=== PATIENT | female | born 1960 | race Caucasian/White ===

== ENCOUNTER 2020-09-01 16:10 | Outpatient (REF) | payer MEDICAID, SELFPAY ==
--- NOTE | 2020-09-01 | MM_ITS ---
EXAMINATION: MM SCREENING DIGITAL BREAST TOMOSYNTHESIS, BILATERAL CLINICAL INFORMATION: Screening. Asymptomatic. The lifetime risk of breast cancer based on the Tyrer-Cuzick Model is 7.2%. COMPARISON: Mammography: May 21, 2019 and studies dating back to October 30, 2011 TECHNIQUE: Digital breast tomosynthesis is performed in both the craniocaudal and mediolateral oblique views along with computer-aided detection (CAD). Synthesized 2D images are generated from the tomosynthesis. FINDINGS: There are scattered areas of fibroglandular density (ACR BI-RADS breast composition Category b). There are no significant masses, abnormal calcifications, or other abnormalities. MM/MM tomosynthesis screening BI IMPRESSION: There are no significant changes from prior study. ASSESSMENT: BI-RADS 1: Negative RECOMMENDATION: Routine annual mammography screening. This patient's information was entered into a reminder system with a target due date for their next mammogram.
== END 2020-09-01 16:11 | disposition home or self-care (01) ==
LOC: HO.MAMMO 16:10
PROVIDERS: PCP Internal Medicine; Visit Provider Internal Medicine
DX: Z12.31 Encounter for screening mammogram for malignant neoplasm of breast (principal)
CPT/HCPCS: 77063; 77067

== ENCOUNTER 2021-10-17 10:05 | Outpatient (REF) | payer MEDICAID, SELFPAY ==
[2021-10-17 11:33] LABS: Hematocrit 38.3 % (37.0-47.0); Hemoglobin 12.9 g/dl (12.0-16.0); Mean Corpuscular HGB Conc 33.7 g/dl (31.0-35.0); Mean Corpuscular Hemoglobin 33.2 pg (27.0-33.0); Mean Corpuscular Volume 98.5 fL (80.0-98.0); Mean Platelet Volume 9.3 fL (9.4-12.3); Platelet Count 342 X10*3/uL (160-400); Red Blood Count 3.89 X10*6/uL (4.20-5.50); Red Cell Distribution Width 12.6 % (11.0-16.0); White Blood Count 4.9 X10*3/uL (4.8-10.8)
[2021-10-17 11:49] LABS: Alanine Aminotransferase 20 U/L (0-31); Albumin Level 4.4 g/dL (3.5-5.0); Alkaline Phosphatase 44 U/L (39-117); Anion Gap 11 (12-20); Aspartate Amino Transferase 23 U/L (5-31); Bilirubin Total 0.5 mg/dL (0.0-1.0); Blood Urea Nitrogen 14 mg/dL (9-16); Calcium 9.8 mg/dL (8.4-10.2); Carbon Dioxide 32 mmol/L (22-29); Chloride 101 mmol/L (96-108); Cholesterol 252 mg/dL; Estimated Glomerular Filt Rate > 60; Glucose Random 89 mg/dL (60-115); HDL Cholesterol 75 mg/dL; LDL Cholesterol Calculated 156 mg/dl; Potassium 4.7 mmol/L (3.3-5.1); Sodium 139 mmol/L (135-145); Total Protein 6.8 g/dL (6.5-8.0); Triglycerides 107 mg/dL
[2021-10-17 12:13] LABS: Thyroid Stimulating Hormone 0.66 uIU/mL (0.32-4.0); Vitamin D 25-OH Total 49.5 ng/mL (>30)
[2021-10-17 12:15] LABS: Folate 10.8 ng/mL (> or = 4.0); Vitamin B12 331 pg/mL (200-900)
[2021-10-18 08:04] LABS: ~HepC Num1 0.08 S/CO (0.00-0.79); ~Hepatitis C Antibody Nonreactive (Nonreactive)
== END 2021-10-17 10:06 | disposition home or self-care (01) ==
LOC: HO.HMGCLDS 10:05
PROVIDERS: PCP Internal Medicine; Visit Provider Registered Nurse
DX: Z00.00 Encounter for general adult medical examination without abnormal findings (principal); Z11.59 Encounter for screening for other viral diseases; Z11.4 Encounter for screening for human immunodeficiency virus [HIV]; Z13.220 Encounter for screening for lipoid disorders; Z13.29 Encounter for screening for other suspected endocrine disorder
CPT/HCPCS: 36415; 80053; 80061; 82306; 82607; 82746; 84443; 85027; 86803

== ENCOUNTER 2021-12-18 15:12 | Outpatient (REF) | payer MEDICAID, SELFPAY ==
--- NOTE | ~2021-12-18 | MM_ITS ---
EXAMINATION: MM SCREENING DIGITAL BREAST TOMOSYNTHESIS, BILATERAL CLINICAL INFORMATION: Screening. Asymptomatic. The lifetime risk of breast cancer based on the Tyrer-Cuzick Model is 7%. COMPARISON: Mammography: 09/01/2020, 05/21/2019, 05/13/2018 TECHNIQUE: Digital breast tomosynthesis is performed in both the craniocaudal and mediolateral oblique views along with computer-aided detection (CAD). Synthesized 2D images are generated from the tomosynthesis. FINDINGS: There are scattered areas of fibroglandular density (ACR BI-RADS breast composition Category b). There are no significant masses, abnormal calcifications, or other abnormalities. Parenchymal pattern is similar to prior studies. There is no developing density or architectural abnormality. The axilla and skin contours are unremarkable. No significant changes. MM/MM tomosynthesis screening BI IMPRESSION: No mammographic evidence of malignancy. ASSESSMENT: BI-RADS 1: Negative RECOMMENDATION: Routine annual mammography screening. This patient's information was entered into a reminder system with a target due date for their next mammogram.
== END 2021-12-18 15:13 | disposition home or self-care (01) ==
LOC: HO.MAMMO 15:12
PROVIDERS: PCP Internal Medicine; Visit Provider Internal Medicine
DX: Z12.31 Encounter for screening mammogram for malignant neoplasm of breast (principal)
CPT/HCPCS: 77063; 77067

== ENCOUNTER 2023-01-17 14:43 | Outpatient (REF) | payer MEDICAID, SELFPAY ==
--- NOTE | ~2023-01-17 | MM_ITS ---
EXAMINATION: BONE DENSITOMETRY CLINICAL INDICATION: Osteopenia. COMPARISON: Baseline BD dated 05/21/2019. TECHNIQUE: Using a [employer] DXA System (software version: 13.1) manufactured by [employer], dual-energy x-ray absorptiometry was performed of the lumbar spine and left hip. The images are of good technical quality. Summary results are attached. FINDINGS: AP SPINE L1-L4: Current: BMD 0.947 g/cm2, Z-score -0.2, T-score -1.9, osteopenia, 5.3% decrease from baseline (<5% change is not significant). Baseline: BMD 1.000 g/cm2. LEFT FEMUR, NECK: Current: BMD 0.762 g/cm2, Z-score -0.4, T-score -2.0, osteopenia. Baseline: BMD 0.775 g/cm2. LEFT FEMUR, TOTAL: Current: BMD 0.806 g/cm2, Z-score -0.3, T-score -1.6, osteopenia, 5.4% decrease from baseline (<5% change is not significant). Baseline: BMD 0.852 g/cm2. IDENTIFIED RISK FACTORS: Early menopause, secondary osteoporosis. HISTORY OF FRACTURE: None listed. MEDICATIONS: None listed. MM/XR DEXA axial skeleton IMPRESSION: 1. DIAGNOSIS: Osteopenia based on the lowest T-score value of -2.0 in the femoral neck applying World Health Organization criteria. 2. 10-YEAR FRACTURE RISK PREDICTION, FRAX: Major osteoporotic fracture (clinical spine, forearm, hip or shoulder) 9.1%. Hip fracture 1.3%. 3. Treatment Recommendations: NOF guidelines recommend consideration for treatment in postmenopausal women and men age 50 and older presenting with the following: -A hip or vertebral (clinical or morphometric) fracture. -T-score less than or equal to -2.5 at the femoral neck or spine after appropriate evaluation to exclude secondary causes. -Low bone mass at the hip or spine and a 10-year fracture probability by FRAX of greater than or equal to 3% for hip fracture or greater than or equal to 20% for major osteoporotic fracture based on the [place] adapted WHO algorithm. 4. Other Recommendations: All treatment decisions require clinical judgment and consideration of individual patient factors, including patient preferences, comorbidities, previous drug use, risk factors not captured in the FRAX model (e.g. frailty, falls, vitamin D deficiency, increased bone turnover, interval significant decline in bone density) and possible under or overestimation of fracture risk by FRAX. Additional medical evaluation for secondary cause of low bone mineral density may be appropriate. FUTURE SCAN RECOMMENDATION: People with diagnosed cases of osteoporosis or at high risk for fracture should have regular bone mineral density tests. For patients eligible for Medicare, routine testing is allowed once every 2 years. The testing frequency can be increased to one year for patients who have rapidly progressing disease, those who are receiving or discontinuing medical therapy to restore bone mass, or have additional risk factors.
--- NOTE | ~2023-01-17 | MM_ITS ---
EXAMINATION: MM SCREENING DIGITAL BREAST TOMOSYNTHESIS, BILATERAL CLINICAL INFORMATION: Screening. Asymptomatic. The lifetime risk of breast cancer based on the Tyrer-Cuzick Model is 6.0%. COMPARISON: Mammography: December 18, 2021 and studies dating back to April 09, 2017 TECHNIQUE: Digital breast tomosynthesis is performed in both the craniocaudal and mediolateral oblique views along with computer-aided detection (CAD). Synthesized 2D images are generated from the tomosynthesis. FINDINGS: There are scattered areas of fibroglandular density (ACR BI-RADS breast composition Category b). There are no significant masses, abnormal calcifications, or other abnormalities. MM/MM tomosynthesis screening BI IMPRESSION: No significant changes from prior exam. ASSESSMENT: BI-RADS 1: Negative RECOMMENDATION: Routine annual mammography screening. This patient's information was entered into a reminder system with a target due date for their next mammogram.
== END 2023-01-17 14:44 | disposition home or self-care (01) ==
LOC: HO.MAMMO 14:43
PROVIDERS: PCP Registered Nurse; Visit Provider Registered Nurse
DX: Z12.31 Encounter for screening mammogram for malignant neoplasm of breast (principal); Z13.820 Encounter for screening for osteoporosis; Z78.0 Asymptomatic menopausal state; M85.80 Other specified disorders of bone density and structure, unspecified site
CPT/HCPCS: 77063; 77067; 77080

== ENCOUNTER → 2023-01-31 09:12 | Outpatient (BNVA) | payer OTHER, SELFPAY | PROVIDERS: PCP Registered Nurse; Visit Provider Physician Assistant Medical | DX: T21.21XA Burn of second degree of chest wall, initial encounter (principal); X11.8XXA Contact with other hot tap-water, initial encounter | CPT/HCPCS: 16000; 99203 ==

== ENCOUNTER → 2023-02-01 11:35 | Outpatient (BNVA) | payer OTHER, SELFPAY | PROVIDERS: PCP Registered Nurse; Visit Provider Physician Assistant Medical | DX: T21.21XD Burn of second degree of chest wall, subsequent encounter (principal); X11.8XXD Contact with other hot tap-water, subsequent encounter | CPT/HCPCS: 99213 ==

== ENCOUNTER 2023-02-20 16:54 | Inpatient (IN) | payer OTHER, SELFPAY ==
--- NOTE | ~2023-02-20 | XR_ITS ---
EXAMINATION: XR HAND, LEFT CLINICAL INFORMATION: Left hand pain, status post jammed in car door. COMPARISON: None available. TECHNIQUE: PA, lateral, and oblique views of the left hand. FINDINGS: There is moderate soft tissue swelling mid phalanx fourth digit. No visible fracture or dislocation seen. There is mild osteopenia. No visible arthritic changes. XR/XR hand LT min 3V IMPRESSION: Moderate soft tissue swelling mid phalanx fourth digit. No visible acute fracture or dislocation seen. There is mild osteopenia. Soft tissue swelling mid phalanx fourth digit without underlying fracture or dislocation. There is mild osteopenia.
[2023-02-20 17:13] VITALS: BP 140/70; PULSE 92; RESP 18; TEMP 36.6; O2SAT 98; BMI 22.3
--- NOTE | 2023-02-20 17:17 | ED_ITS ---
HPI - Extremity Problem General Chief complaint: Extremity Problem <DANNIE Pham - Last Filed: 02/20/23 18:13> Stated complaint: referral from urgent care, cellulitis L hand <DANNIE Pham - Last Filed: 02/20/23 18:13> Time Seen by Provider: 02/20/23 20:02 <DANNIE Pham - Last Filed: 02/20/23 18:13> Source: patient <Med De Oliveira MD - Last Filed: 02/20/23 21:08> Mode of arrival: ambulatory <Med De Oliveira MD - Last Filed: 02/20/23 21:08> Limitations: no limitations <Med De Oliveira MD - Last Filed: 02/20/23 21:08> History of Present Illness HPI Narrative: 62-year-old female who presents emergency department for evaluation of injury to her left hand with increased pain and swelling. Patient states that on Saturday night, 02/17/2023 she changed her left middle finger in a door. She sustained a cut on her left 4th finger. Initially this blood but she was able to control the bleeding. She states that over the last several days she has not felt well. She has had fatigue and weakness. She states that she also de veloped a blister on her nose she is not certain if this preceded the cut her came on after the cut. She states that her nose is now red and swollen and the redness has spread to her face. She states that this morning the left 4th finger became very swollen and painful, the redness spread down her hand. She went to an urgent care clinic and advised to go to the emergency department for evaluation of cellulitis. She states since being in the ER the redness has spread proximally. <Med De Oliveira MD - Last Filed: 02/20/23 21:08> Related Data Allergies/Adverse reactions: Allergies Allergy/AdvReac Type Severity Reaction Status Date / Time No Known Allergies Allergy Unverified 07/07/20 16:32 <DANNIE Pham Last Filed: 02/20/23 18:13> Review of Systems Review of Systems: Yes all other systems are reviewed and are negative <Med De Oliveira MD - Last Filed: 02/20/23 21:08> [facility] Past Medical History [facility] Narrative: Past medical history resting tremor. Social history: She denies tobacco and alcohol use. She does drink 2 glasses of wine and 1 glass of beer 5 times a week. She denies drug use. <Med De Oliveira MD - Last Filed: 02/20/23 21:08> Social History Social History: Social History Smoked in Last 30 Days: No Use of substances other than those prescribed or required for medical reasons: No Advance Directives: No Advance Directives Information Provided: No Patient : No <DANNIE Pham - Last Filed: 02/20/23 18:13> Physical Exam Vital Signs: Vital Signs: Last Vital Signs Temp 98 F 02/20/23 17:13 Pulse 92 02/20/23 17:13 Resp 18 02/20/23 17:13 BP 140/70 H 02/20/23 17:13 Pulse Ox 98 02/20/23 17:13 O2 Del Method Room Air 02/20/23 17:13 BMI result Body Mass Index 22.3 <DANNIE Pham - Last Filed: 02/20/23 18:13> Vital Signs: Last Vital Signs Temp 98 F 02/20/23 17:13 Pulse 92 02/20/23 17:13 Resp 18 02/20/23 17:13 BP 140/70 H 02/20/23 17:13 Pulse Ox 98 02/20/23 17:13 O2 Del Method Room Air 02/20/23 17:13 BMI result Body Mass Index 22.3 <Med De Oliveira MD - Last Filed: 02/20/23 21:08> Const: Other: Awake, alert, female patient, appears to be in distress secondary to her left hand injury. <Med De Oliveira MD - Last Filed: 02/20/23 21:08> HEENT: Other: <Med De Oliveira MD - Last Filed: 02/20/23 21:08> Head: Yes normal to inspection, Yes normocephalic and Yes atraumatic <Med De Oliveira MD - Last Filed: 02/20/23 21:08> Ears: external ears normal <MD Tatyana Fonseca Last Filed: 02/20/23 21:08> General nose exam: Normal external nose present <MD Tatyana Fonseca Last Filed: 02/20/23 21:08> Face and sinus: Yes other (Patient has several blisters to her nose, her nose and cheeks are red /warm) <MD Tatyana Fonseca Last Filed: 02/20/23 21:08> Mouth: Normal oral and palatal mucosa present <MD Tatyana Fonseca Last Filed: 02/20/23 21:08> Throat: Yes posterior oropharynx normal <MD Tatyana Fonseca Last Filed: 02/20/23 21:08> Eyes: General: appearance normal, both eyes and all related structures <MD Tatyana Fonseca Last Filed: 02/20/23 21:08> Pupils: Equal, round and reactive pupils present <MD Tatyana Fonseca Last Filed: 02/20/23 21:08> Neck: Neck: Yes normal visual inspection, Yes no lymphadenopathy, Yes trachea midline and Yes supple <MD Tatyana Fonseca Last Filed: 02/20/23 21:08> Chest: Chest palpation & inspection: normal inspection of the chest and normal palpation of entire chest wall <MD Tatyana Fonseca Last Filed: 02/20/23 21:08> Resp: Effort & Inspection: normal respiratory effort and able to speak in complete sentences <MD Tatyana Fonseca Last Filed: 02/20/23 21:08> Auscultation: clear to auscultation bilaterally <MD Tatyana Fonseca Last Filed: 02/20/23 21:08> Cardio: Rate: regular rate <MD Tatyana Fonseca Last Filed: 02/20/23 21:08> Rhythm: regular rhythm <MD Tatyana Fonseca Last Filed: 02/20/23 21:08> Heart sounds: S1 normal heart sound present, S2 normal heart sound present and no murmurs <MD Tatyana Fonseca Last Filed: 02/20/23 21:08> GI: Inspection: Yes normal to inspection <Med De Oliveira MD - Last Filed: 02/20/23 21:08> Palpation (GI): Soft to palpation, nontender and no guarding <Med De Oliveira MD - Last Filed: 02/20/23 21:08> Auscultation: normal bowel sounds <Med De Oliveira MD - Last Filed: 02/20/23 21:08> Neuro: Cranial nerves: Yes CN's II-XII intact bilaterally and Yes Equal, round and reactive pupils present <Med De Oliveira MD - Last Filed: 02/20/23 21:08> Cognition (Neuro): normal cognition <Med De Oliveira MD - Last Filed: 02/20/23 21:08> Motor exam (neuro): 5/5 motor strength present throughout <Med De Oliveira MD - Last Filed: 02/20/23 21:08> Extrem: Other: Patient has he purulent appearing blister on her 4th finger which is ecchymotic, the patient has erythema over the 4th and 5th finger extending down the palm. She also has significant soft tissue swelling and erythema with increased warmth over the dorsal aspect of the hand. Patient has limited range of motion of the 4th finger secondary to pain <Med De Oliveira MD - Last Filed: 02/20/23 21:08> General: Yes normal to inspection <Med De Oliveira MD - Last Filed: 02/20/23 21:08> Psych: Appearance: grossly normal <Med De Oliveira MD - Last Filed: 02/20/23 21:08> Speech and movement: Normal speech and movement present <MD Tatyana Fonseca Last Filed: 02/20/23 21:08> Affect: normal affect <MD Tatyana Fonseca Last Filed: 02/20/23 21:08> Course Course Course Narrative: This is an RME: Additional HPI, ROS, PE not included below will be deferred to primary provider. 62-year-old female presents with crush injury to left hand crush injury happened on Saturday and has been worsening in terms of pain and swelling, patient reports she went to Urgent Care, Urgent Care told her she had synovitis and told her to come in because they were concerned she could be septic. I do not agree with this diagnosis. Patient's hand is likely swol adina and red likely secondary to a crush injury, she has not yet had imaging done, unsure if she has a fracture dislocation of that finger. Neurovascular status intact. Will bring her back to a minor care obtain x-rays and give something for pain control. On exam left 4th phalanx with erythema, edema, unable to perform range of motion secondary to pain and swelling. Radial pulses present. Neurovascular status intact <DANNIE Pham - Last Filed: 02/20/23 18:13> Medications Administered Discontinued Medications Generic Name Dose Route Start Last Admin Trade Name Freq PRN Reason Stop Dose Admin Oxycodone HCl 5 mg 02/20/23 17:16 02/20/23 19:23 Oxycodone Hcl Immed Release 5 Mg Tablet PO 02/20/23 17:17 5 mg ONCE ONE Administration <DANNIE Pham - Last Filed: 02/20/23 18:13> Medications Administered Discontinued Medications Generic Name Dose Route Start Last Admin Trade Name Freq PRN Reason Stop Dose Admin Oxycodone HCl 5 mg 02/20/23 17:16 02/20/23 19:23 Oxycodone Hcl Immed Release 5 Mg Tablet PO 02/20/23 17:17 5 mg ONCE ONE Administration <Med De Oliveira MD - Last Filed: 02/20/23 21:08> Medical Decision Making Medical Decision Making MDM Narrative: 62-year-old female who presents emergency department for evaluation of pain swelling and erythema of her left hand. She initially injured her left 5th finger when she closed it in the door 3 days prior. She also had erythema to her nose and cheeks bilaterally. Patient has had fatigue but no shaking chills or fever documented. Patient has a significant infection of her left hand with possible abscess to the left 4th finger. Patient also has erythema to her nose and face which may be hematologic spread of this infection. I ordered a laboratory evaluation includes CBC, CMP, CRP, ESR, lactic acid, PT/INR, PTT, blood cultures x2. I ordered an IV to be inserted, patient will be given normal saline x1 L, ceftriaxone 1 g IV and cefazolin 2 g IV. She received oxycodone 5 mg orally from triage provider. I ordered morphine 4 mg IV for her pain. I will consult our orthopedic provider to discuss admission for antibiotics and evaluation by our hand orthopedic surgeon. 2044: I did discuss over tiger text the patient's presentation with the covering orthopedic position Lyssa PANDEY. She requested that the patient be kept NPO after midnight, admitted to the hospitalist service with an orthopedic consult to Dr. Garcia. She believes that Dr. Garcia will take the patient to the operating room tomorrow. I discussed the patient's presentation with the covering hospitalist, Dr. Morales and the patient will be admitted to the hospital service. ESR pending. 2103: My interpretation laboratory data is as follows: Elevated WBC 05119 with left shift 81% neutrophils. Coags normal. Social low 132. CRP elevated 17.63. ESR pending. <Med De Oliveira MD - Last Filed: 02/20/23 21:08> Differential Diagnosis Differential diagnosis includes was not limited to cellulitis, abscess, tenosynovitis, felon <Med De Oliveira MD - Last Filed: 02/20/23 21:08> Admission/Observation Consideration of admission/observation: Escalation of care including admission/observation considered <Med De Oliveira MD - Last Filed: 02/20/23 21:08> Consult Healthcare Provider Management of the patient was discussed with: Hospitalist <Med De Oliveira MD - Last Filed: 02/20/23 21:08> Lab Data [facility] Lab Attestation statement: I reviewed the patient's lab results. <Med De Oliveira MD - Last Filed: 02/20/23 21:08> Radiology Impression Discussion of test interpretation with radiology: I have reviewed the radiologist's reading. <Med De Oliveira MD - Last Filed: 02/20/23 21:08> Radiologist Impression: XR hand LT min 3V IMPRESSION: Moderate soft tissue swelling mid phalanx fourth digit. No visible acute fracture or dislocation seen. There is mild osteopenia. Soft tissue swelling mid phalanx fourth digit without underlying fracture or dislocation. There is mild osteopenia. Dictated By:Wesley Rao MD <Med De Oliveira MD - Last Filed: 02/20/23 21:08> Independent Historian Clinical information obtained from an independent historian. History obtained from or confirmed by: Other (Sister) <Med De Oliveira MD - Last Filed: 02/20/23 21:08>
[2023-02-20] MEDS: oxyCODONE HCl Immed Release 5 MG TABLET PO (19:23)
--- NOTE | 2023-02-20 19:26 | PC.NURSE ---
Pt medicated per MAR, awaiting MD signup.
[2023-02-20 20:45] LABS: MANUAL DIFF FLAG NO
[2023-02-20 20:50] LABS: Basophils Absolute Auto 0.1 X10*3/uL (0.0-0.2); Basophils Percent Auto 0.5 % (0-2); Hematocrit 35.1 % (37.0-47.0); Hemoglobin 12.4 g/dl (12.0-16.0); Imm Gran Abs Auto 0.16 X10*3/uL (0.00-0.03); Imm Gran Pct Auto 0.8 % (0.0-0.4); Lymphocytes Percent Auto 5.1 % (20-40); Mean Corpuscular HGB Conc 35.3 g/dl (31.0-35.0); Mean Corpuscular Hemoglobin 34.3 pg (27.0-33.0); Mean Platelet Volume 8.9 fL (9.4-12.3); Monocytes Absolute Auto 1.2 X10*3/uL (0.1-1.2); Monocytes Percent Auto 5.8 % (2-11); Neutrophils Absolute Auto 17.7 x10*3/uL (2.0-8.3); Neutrophils Percent Auto 87.8 % (45-73); Platelet Count 269 X10*3/uL (160-400); Red Blood Count 3.62 X10*6/uL (4.20-5.50); Red Cell Distribution Width 12.5 % (11.0-16.0); White Blood Count 20.1 X10*3/uL (4.8-10.8)
[2023-02-20] MEDS: Morphine Sulfate 4 MG/ML CARTRIDGE IVPUSH (20:52)
[2023-02-20] MEDS: 0.9 % Sodium Chloride 1,000 ML 999 ML IV (20:53)
[2023-02-20 20:58] LABS: Partial Thromboplastin Time 29.2 SEC (26.0-36.4)
[2023-02-20 20:59] LABS: Lactic Acid 0.8 mmol/L (0.5-2.0)
[2023-02-20 21:03] LABS: Alanine Aminotransferase 20 U/L (0-31); Albumin Level 4.1 g/dL (3.5-5.0); Alkaline Phosphatase 70 U/L (39-117); Anion Gap 15 (12-20); Aspartate Amino Transferase 23 U/L (5-31); Blood Urea Nitrogen 7 mg/dL (9-16); C Reactive Protein 17.63 mg/dL (< or = 0.50); Carbon Dioxide 23 mmol/L (22-29); Chloride 98 mmol/L (96-108); Creatinine Clr Calc Pharmacy 67.5; Estimated Glomerular Filt Rate > 60; Glucose Random 102 mg/dL (60-115); Potassium 4.3 mmol/L (3.3-5.1); Sodium 132 mmol/L (135-145); Total Protein 6.8 g/dL (6.5-8.0)
--- NOTE | 2023-02-20 21:05 | ECG_ITS ---
Test Reason : MEDICAL CLEARANCE Blood Pressure : / mmHG Vent. Rate : 078 BPM Atrial Rate : 078 BPM P-R Int : 150 ms QRS Dur : 094 ms QT Int : 360 ms P-R-T Axes : 056 039 005 degrees QTc Int : 410 ms Normal sinus rhythm T wave abnormality, consider inferior ischemia Abnormal ECG When compared with ECG of 19-SEP-2018 19:06, Minimal criteria for Inferior infarct are no longer Present T wave inversion no longer evident in Anterior leads QT has shortened Referred By: Med De Oliveira Electronically Signed By:CARLIN GIBSON MD
[2023-02-20] MEDS: ceFAZolin Sodium/Dextrose,Iso 2 GM/50 ML PIGGYBACK IV (21:08)
--- NOTE | 2023-02-20 21:16 | P.HPHOSP_ITS ---
pt seen and examined., has significant pain. evidence of abscess and cellulitis . started on ABX. to be seen by Ortho hand specialist in AM. for full H&P see below History of Present Illness Date of Service: 02/20/23 Attending physician on admission: Hossein Morales Chief Complaint: Finger abscess Pt is a 62-year-old female with PMH significant for anxiety, benign tremors, and anxiety?who presents to the ED with?after closing her left 4th finger in a door 3 days prior and 02/17/2023. Patient says that she closed her fingers in a closet door and felt a little pinch that bled just a little bit. Pt did not have any reduced ROM or reduction in her activities that night or throughout the next day. However yesterday patient says her fingers started to throb and she experienced some fever and chills. This morning when she awoke her her finger and hand had blown up and she noticed a spreading redness over both sides of her hand. Patient went to urgent care who then suggested she come to the hospital for further evaluation. Patient denies nausea, vomiting, abdominal pain. No chest pain/pressure, palpitations. No shortness of breath. ED provider contacted Orthopedics who wished patient to be NPO after midnight and will evaluate her in the morning. Patient also complains of a red rash and blisters that have formed over her nose and cheeks since Saturday 1 day prior to her finger incident. Patient states she has a long history of sun bathing but denies having a similar episode 4. States the rash on her face is looking better today than it was yesterday. In the ED patient was afebrile and hemodynamically stable. Labs were significant for leukocytosis of 20.1, mildly elevated ESR of 39, sodium of 132, C-reactive protein 17.63. Left hand x-ray showed moderate soft tissue swelling mid phalanx 4th digit without underlying fracture or dislocation. Pt was treated with cefazolin, vanco, morphine, IV fluid. Pt will be admitted to the hospital for treatment and further evaluation of left hand cellulitis and abscess with likely surgical intervention tomorrow by Orthopedics. Review of Systems Review of Systems: Left hand swelling, pain, redness Fever, chills Red rash over nose and cheeks Denies nausea, vomiting, diarrhea, abdominal pain No chest pain/pressure, palpitations No shortness of breath Yes all other systems are reviewed and are negative [facility] Social History Smoked in Last 30 Days: No Use of substances other than those prescribed or required for medical reasons: No Advance Directives: No Advance Directives Information Provided: No Patient : No Meds Allergies Allergy/AdvReac Type Severity Reaction Status Date / Time No Known Allergies Allergy Unverified 07/07/20 16:32 Active Medications: Current Medications Sodium Chloride (Ns) 1,000 mls @ 999 mls/hr IV .Q1H1M STA Stop: 02/20/23 21:18 Last Admin: 02/20/23 20:53 Dose: 999 mls/hr Vancomycin HCl 1,250 mg/ (Sodium Chloride) 250 mls @ 166.667 mls/hr IV ONCE ONE Stop: 02/20/23 22:08 Home Medications Medication Instructions Recorded Confirmed Last Taken Type bupropion HCl 300 mg 24 hr tablet, 300 mg PO DAILY 02/20/23 02/20/23 02/20/23 History extended release escitalopram oxalate 20 mg tablet 20 mg PO BEDTIME 02/20/23 02/20/23 02/19/23 History ibuprofen 800 mg tablet 800 mg PO BID PRN Pain 02/20/23 02/20/23 02/20/23 History lorazepam 0.5 mg tablet 0.5 mg PO DAILY PRN anxiety 02/20/23 02/20/23 02/17/23 History omeprazole 20 mg capsule,delayed 20 mg PO DAILY 02/20/23 02/20/23 02/17/23 History release primidone 50 mg tablet 100 mg PO DAILY 02/20/23 02/20/23 02/20/23 History trazodone 100 mg tablet 100 mg PO BEDTIME PRN insomnia 02/20/23 02/20/23 02/19/23 History Physical Exam Vital Signs and Narrative: Vital Signs: Last Vital Signs Temp 98 F 02/20/23 17:13 Pulse 92 02/20/23 17:13 Resp 18 02/20/23 17:13 BP 140/70 H 02/20/23 17:13 Pulse Ox 98 02/20/23 17:13 O2 Del Method Room Air 02/20/23 17:13 BMI result Body Mass Index 22.3 Constitutional: Alert, in no acute distress. Mental Status: Oriented to person, place and time. Eyes: Pupils are equal, round, and reactive to light. Ear, Nose, and Throat: Oropharynx clear, mucous membranes moist. Ears and nose without deformities. Trachea midline. Mild erythema covering nose and extending to cheekbones. Respiratory: Clear to auscultation bilaterally. No wheezing, rales, or rhonchi. Cardiovascular: S1, S2 regular. No murmurs, rubs, or gallops. Gastrointestinal: Abdomen soft, non-tender, non-distended. Normal bowel sounds. Neurologic: Cranial nerves II-XII are grossly intact bilaterally. No focal neurological deficits. Moves all extremities spontaneously. Extremities: Purulent draining sore at the distal palmar aspect of 4th digit with large area of ecchymosis surrounding 4th digit PIP. Significant swelling of 4th digit extending into the distal 3rd of the palm. Area of erythema and more with on distal palmar and dorsal aspect of the hand. See pictures below. Psychiatric: Normal mood and affect. Results Labs 02/20/23 20:33 02/20/23 20:33 Labs: Laboratory Results - last 24 hr 02/20/23 02/20/23 02/20/23 20:33 20:33 20:33 MCV 97.0 MCH 34.3 H MCHC 35.3 H RDW 12.5 Plt Count 269 MPV 8.9 L Immature Gran % (Auto) 0.8 H Neut % (Auto) 87.8 H Lymph % (Auto) 5.1 L Lee % (Auto) 5.8 Eos % (Auto) 0.0 Baso % (Auto) 0.5 Lymph # (Auto) 1.0 L Lee # (Auto) 1.2 Eos # (Auto) 0.0 Baso # (Auto) 0.1 Abs Immat Gran (auto) 0.16 H Absolute Neuts (auto) 17.7 H Absolute Nucleated RBC 0.000 Nucleated RBC % (auto) 0.0 PT 11.0 INR 1.0 APTT 29.2 Anion Gap 15 Estim Creat Clear Calc 67.5 Estimated GFR > 60 Random Glucose 102 Lactic Acid Calcium 9.0 D Total Bilirubin 1.0 AST 23 ALT 20 Alkaline Phosphatase 70 C-Reactive Protein 17.63 H Total Protein 6.8 Albumin 4.1 02/20/23 20:33 MCV MCH MCHC RDW Plt Count MPV Immature Gran % (Auto) Neut % (Auto) Lymph % (Auto) Lee % (Auto) Eos % (Auto) Baso % (Auto) Lymph # (Auto) Lee # (Auto) Eos # (Auto) Baso # (Auto) Abs Immat Gran (auto) Absolute Neuts (auto) Absolute Nucleated RBC Nucleated RBC % (auto) PT INR APTT Anion Gap Estim Creat Clear Calc Estimated GFR Random Glucose Lactic Acid 0.8 Calcium Total Bilirubin AST ALT Alkaline Phosphatase C-Reactive Protein Total Protein Albumin Imaging Radiologist's Impressions: Impressions Hand X-Ray 02/20/23 18:09 IMPRESSION: Moderate soft tissue swelling mid phalanx fourth digit. No visible acute fracture or dislocation seen. There is mild osteopenia. Soft tissue swelling mid phalanx fourth digit without underlying fracture or dislocation. There is mild osteopenia. Assessment and Plan (1) Abscess of finger, left: Status: Acute Plan Pt is a 62-year-old female with PMH significant for anxiety, benign tremors, and anxiety?who presents to the ED with?after closing her left 4th finger in a door 3 days prior and 02/17/2023. Pt will be admitted to the hospital for treatment and further evaluation of left hand cellulitis and abscess with likely surgical intervention tomorrow by Orthopedics. Abscess of 4th digit of left hand Patient with swelling, erythema, ecchymosis, purulent drainage of 4th digit and left hand Patient not septic: Leukocytosis, but normothermic and not tachycardic or tachypneic IV antibiotics: Vanco and cefazolin pt will be kept NPO after midnight in anticipation for possible surgical intervention by orthopedics in the morning Analgesics for pain management Pneumatic boots for DVT prophylaxis Facial rash Unclear etiology, differential includes Rosacea, lupus Started one day prior to finger injury Improved without treatment, observe for now If condition worsens consider treatment with steroids Should follow up outpatient with PCP or or scrub tech Benign tremors Continue primidone Mood disorder Continue home meds Insomnia Continue trazodone Full Code Attending:?Dr. Morales DVT Prophylaxis: Pneumatic boots Pt will require a hospitalization of at least two overnights for treatment and further evaluation of left hand cellulitis and abscess with likely surgical intervention tomorrow by Orthopedics. Time Spent With Patient Time: Total time managing care of this patient today ____ minutes. Quality Stroke Does the patient have a stroke diagnosis?: No VTE Prior VTE?: No VTE Risk Level:: Medical - moderate - high VTE Device Contraindication: N/A - Device Ordered VTE Drug Contraindication: Treatment Not Indicated
--- NOTE | 2023-02-20 21:27 | PHA.MEDREC ---
Pharmacy Consult ? Medication Reconciliation Pharmacy has completed the medication reconciliation.
[2023-02-20] MEDS: vancomycin HCL 1,250 MG in 0.9 % Sodium Chloride 250 ML 166.67 MG IV (21:46)
[2023-02-20 21:47] VITALS: BP 119/65; PULSE 82; RESP 18; O2SAT 96
[2023-02-20 21:47] LABS: Erythrocyte Sedimentation Rate 39 MM/HR (0-20)
[2023-02-20 22:19] LABS: COVID-19 Test Negative (Negative); IDNOW Serial# 08D9AD1C
[2023-02-20] MEDS: HYDROmorphone HCl 0.5 MG/0.5 ML SYRINGE IVPUSH (22:32)
--- NOTE | 2023-02-20 22:34 | PC.NURSE ---
phone report called to [facility]
--- NOTE | 2023-02-20 22:39 | PHA.PROG ---
Admission Date/Time: February 20, 2023 22:22 Indication: skin Weight in k.524 kg Adjusted body weight in Kg: Spade body weight in Kg: Obesity Dosing Indication % IBW: Serum Creatinine - Last 168 Hours 02/20/23 20:33 Creatinine 0.66 Estimated CrCl and GFR - Last 168 Hours 02/20/23 20:33 Estim Creat Clear Calc 67.5 Estimated GFR > 60 Vancomycin Loading Dose: 1250mg x 1 Current Vancomycin Dosing Regimen: 750mg Q12H Vancomycin Monitoring using AUC goal of 400 - 600 range with trough as surrogate marker: 475mg/L Date and Time for next Vancomycin Level to be drawn: 02/22/23 @0800 Pharmacist Comments on Vancomycin Plan: Predicted trough of 14.7mg/L. Will continue to monitor renal function Vancomycin dosing will take advantage of [employer] as a clinical decision support tool that uses Bayesian modeling to calculate individual patient's pharmacokinetic parameters and forecast the patient's drug concentration time course with the target goal AUC 24 range of 400 - 600 mg/L/hr.
[2023-02-20] MEDS: traZODone HCL 100 MG TABLET PO (22:52)
[2023-02-20] MEDS: LORazepam 0.5 MG TABLET PO (22:52)
--- NOTE | 2023-02-20 23:13 | MHC.EDTECH ---
Walked patient to the bathroom
[2023-02-21] VITALS (14 sets, daily range): BP systolic 101–115; BP diastolic 45–66; PULSE 85–112; RESP 16–20; TEMP 36.3–38.1; O2SAT 92–97
[2023-02-21] MEDS: Morphine Sulfate 4 MG/ML CARTRIDGE IVPUSH ×2 (00:47→08:35)
[2023-02-21] MEDS: 0.9 % Sodium Chloride Flush 3 ML SYRINGE IVFLUSH ×4 (00:51→21:27)
[2023-02-21] MEDS: HYDROmorphone HCl 0.5 MG/0.5 ML SYRINGE IVPUSH ×2 (04:38→21:26)
[2023-02-21] MEDS: ceFAZolin Sodium/Dextrose,Iso 2 GM/50 ML PIGGYBACK IV ×3 (04:43→21:27)
[2023-02-21] MEDS: Omeprazole 20 MG CAPSULE.DR PO (05:19)
[2023-02-21 08:08] LABS: Hematocrit 34.4 % (37.0-47.0); Hemoglobin 11.5 g/dl (12.0-16.0); Mean Corpuscular HGB Conc 33.4 g/dl (31.0-35.0); Mean Corpuscular Hemoglobin 33.7 pg (27.0-33.0); Mean Corpuscular Volume 100.9 fL (80.0-98.0); Mean Platelet Volume 9.1 fL (9.4-12.3); Platelet Count 277 X10*3/uL (160-400); Red Blood Count 3.41 X10*6/uL (4.20-5.50); Red Cell Distribution Width 12.9 % (11.0-16.0); White Blood Count 20.9 X10*3/uL (4.8-10.8)
[2023-02-21 08:21] LABS: Anion Gap 15 (12-20); Blood Urea Nitrogen 6 mg/dL (9-16); Calcium 8.6 mg/dL (8.4-10.2); Carbon Dioxide 26 mmol/L (22-29); Chloride 101 mmol/L (96-108); Creatinine Clr Calc Pharmacy 65.5; Estimated Glomerular Filt Rate > 60; Glucose Random 87 mg/dL (60-115); Potassium 4.5 mmol/L (3.3-5.1); Sodium 137 mmol/L (135-145)
--- NOTE | 2023-02-21 08:28 | HE.PHANOTE ---
Vancomycin Dosing Renal function stable. Continue current regimen. Next level 02/22 @ 0800. Andres RochaD
[2023-02-21] MEDS: buPROPion HCl XL 300 MG TAB.ER.24H PO (08:36)
[2023-02-21] MEDS: Primidone 50 MG TABLET 100 MG PO (08:36)
--- NOTE | 2023-02-21 08:55 | P.CONOP_ITS ---
History of Present Illness HPI Consult date: 02/21/23 Chief complaint: Abscess of 4th Digit of left hand Narrative: 62-year-old female with PMH significant for anxiety, benign tremors, and an xiety?who presents to the ED with?after closing her left 4th finger in a door on 02/17/2023.? Patient says that she closed her fingers in a closet door and felt a little pinch that bled just a little bit. Pt did not have any reduced ROM or reduction in her activities that night or throughout the next day.? 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 She states yesterday her fingers started to throb and she experienced some fever and chills.? This morning when she awoke her her finger and hand had blown up and she noticed a spreading redness over both sides of her hand.? She was admitted to the medical service and started on IV abx. This morning she states the finger is worsening. Review of Systems Review of Systems: per [facility] Social History Social History Household Members: None Housing: House Do you presently have visiting nurse or other home services: No Patient Tobacco Use Status: Never used Tobacco Smoked in Last 30 Days: No e-Cigarette/Vaping Use: Never Used Use of substances other than those prescribed or required for medical reasons: No Currently Displaying Signs/Symptoms of Drug Intoxication Withdrawal: No Any prior treatment program specific to substance use: No Have you been hit, kicked, punched, or otherwise hurt by someone within the past year? If so, by whom?: No Do you feel safe in your current relationship?: Yes Is there a partner from a previous relationship who is making you feel unsafe now?: No Are you made to feel afraid or neglected: No Advance Directives: No Advance Directives Information Provided: No Do you have thoughts of harming others: None Do you have a plan to hurt others: No Plan Recently lost weight without trying: No Eating poorly because of decreased appetite: No Nutrition Risks: No Nutritional Risk Patient : No : No Poor oral hygiene: No Meds Allergies Allergy/AdvReac Type Severity Reaction Status Date / Time No Known Allergies Allergy Unverified 07/07/20 16:32 Active Medications: Current Medications Acetaminophen (Acetaminophen 325 Mg Tablet) 650 mg PO Q6H PRN PRN Reason: Pain, Mild (Pain Scale 1-3) Bupropion HCl (Bupropion Hcl Xl 300 Mg Tab.Er.24h) 300 mg PO DAILY [facility] Last Admin: 02/21/23 08:36 Dose: 300 mg Escitalopram Oxalate (Escitalopram Oxalate 20 Mg Tablet) 20 mg PO BEDTIME [facility] Last Admin: 02/20/23 22:54 Dose: Not Given Cefazolin Sodium/Dextrose (Ancef) 2 gm in 50 mls @ 100 mls/hr IV Q8H [facility] Last Infusion: 02/21/23 06:31 Dose: Infused Vancomycin HCl 750 mg/ Sodium (Chloride) 265 mls @ 265 mls/hr IV Q12H [facility] Lorazepam (Lorazepam 0.5 Mg Tablet) 0.5 mg PO DAILY PRN PRN Reason: anxiety Last Admin: 02/20/23 22:52 Dose: 0.5 mg Morphine Sulfate (Morphine Sulfate 4 Mg/Ml Cartridge) 4 mg IVPUSH Q4H PRN; Protocol PRN Reason: Pain, Severe (Pain Scale 7-10) Last Admin: 02/21/23 08:35 Dose: 4 mg Omeprazole (Omeprazole 20 Mg Capsule.Dr) 20 mg PO DAILY@0630 [facility] Last Admin: 02/21/23 05:19 Dose: 20 mg Ondansetron HCl (Ondansetron Hcl 4 Mg/2 Ml Vial) 4 mg IVPUSH Q8H PRN PRN Reason: Nausea and Vomiting Pharmacy Consult (Consult Rx Perform Med Rec) 1 each MISCELLANE ONCE PRN PRN Reason: Consult order Pharmacy Consult (Consult Rx Vancomycin Dosing) 1 each MISCELLANE DAILY PRN PRN Reason: Consult order Primidone (Primidone 50 Mg Tablet) 100 mg PO DAILY [facility] Last Admin: 02/21/23 08:36 Dose: 100 mg Sodium Chloride (0.9 % Sodium Chloride Flush 3 Ml Syringe) 3 ml IVFLUSH QSHIFT [facility] Last Admin: 02/21/23 08:36 Dose: 3 ml Trazodone HCl (Trazodone Hcl 100 Mg Tablet) 100 mg PO BEDTIME PRN PRN Reason: insomnia Last Admin: 02/20/23 22:52 Dose: 100 mg Home Medications Medication Instructions Recorded Confirmed Last Taken Type bupropion HCl 300 mg 24 hr tablet, 300 mg PO DAILY 02/20/23 02/20/23 02/20/23 History extended release escitalopram oxalate 20 mg tablet 20 mg PO BEDTIME 02/20/23 02/20/23 02/19/23 History ibuprofen 800 mg tablet 800 mg PO BID PRN Pain 02/20/23 02/20/23 02/20/23 History lorazepam 0.5 mg tablet 0.5 mg PO DAILY PRN anxiety 02/20/23 02/20/23 02/17/23 History omeprazole 20 mg capsule,delayed 20 mg PO DAILY 02/20/23 02/20/23 02/17/23 History release primidone 50 mg tablet 100 mg PO DAILY 02/20/23 02/20/23 02/20/23 History trazodone 100 mg tablet 100 mg PO BEDTIME PRN insomnia 02/20/23 02/20/23 02/19/23 History Physical Exam Vital Signs: Vital Signs: Last Vital Signs Temp 99.7 F 02/21/23 07:24 Pulse 108 H 02/21/23 07:24 Resp 19 02/21/23 08:35 BP 105/64 02/21/23 07:24 Pulse Ox 93 02/21/23 07:24 O2 Del Method Room Air 02/21/23 07:24 BMI result Body Mass Index 22.3 Extrem: Other: ?Purulent draining sore at the distal palmar aspect of 4th digit with large area of ecchymosis surrounding 4th digit PIP.? Significant swelling of 4th digit extending into the distal 3rd of the palm.? Area of erythema and more with on distal palmar and dorsal aspect of the hand.?No tenderness or swelling throughout the thenar eminence, no pain along the flexor tendon of the 1,2,3,5. Results Labs 02/21/23 07:40 02/21/23 07:40 Labs: Abnormal lab results 02/20/23 02/20/23 02/20/23 Range/Units 20:33 20:33 20:48 WBC 20.1 H (4.8-10.8) X10*3/uL RBC 3.62 L (4.20-5.50) X10*6/uL Hgb (12.0-16.0) g/dl Hct 35.1 L (37.0-47.0) % MCV (80.0-98.0) fL MCH 34.3 H (27.0-33.0) pg MCHC 35.3 H (31.0-35.0) g/dl MPV 8.9 L (9.4-12.3) fL Immature Gran % (Auto) 0.8 H (0.0-0.4) % Neut % (Auto) 87.8 H (45-73) % Lymph % (Auto) 5.1 L (20-40) % Lymph # (Auto) 1.0 L (1.2-4.9) X10*3/uL Abs Immat Gran (auto) 0.16 H (0.00-0.03) X10*3/uL Absolute Neuts (auto) 17.7 H (2.0-8.3) x10*3/uL ESR 39 H (0-20) MM/HR Sodium 132 L (135-145) mmol/L BUN 7 L (9-16) mg/dL C-Reactive Protein 17.63 H (< or = 0.50) mg/dL 02/21/23 02/21/23 Range/Units 07:40 07:40 WBC 20.9 H (4.8-10.8) X10*3/uL RBC 3.41 L (4.20-5.50) X10*6/uL Hgb 11.5 L (12.0-16.0) g/dl Hct 34.4 L (37.0-47.0) % MCV 100.9 H (80.0-98.0) fL MCH 33.7 H (27.0-33.0) pg MCHC (31.0-35.0) g/dl MPV 9.1 L (9.4-12.3) fL Immature Gran % (Auto) (0.0-0.4) % Neut % (Auto) (45-73) % Lymph % (Auto) (20-40) % Lymph # (Auto) (1.2-4.9) X10*3/uL Abs Immat Gran (auto) (0.00-0.03) X10*3/uL Absolute Neuts (auto) (2.0-8.3) x10*3/uL ESR (0-20) MM/HR Sodium (135-145) mmol/L BUN 6 L (9-16) mg/dL C-Reactive Protein (< or = 0.50) mg/dL H & H 02/20/23 02/21/23 Range/Units 20:33 07:40 Hgb 12.4 11.5 L (12.0-16.0) g/dl Hct 35.1 L 34.4 L (37.0-47.0) % Coagulation 02/20/23 Range/Units 20:33 INR 1.0 (0.9-1.1) All other labs normal. Assessment and Plan (1) Abscess of finger, left: Status: Acute Plan We discussed options which include operative treatment.We discussed risk, benefits and alternatives. Risk including but not limited to ongoing infection, stiffness, nerve/tissue damage.She does understand all this and would like to proceed with With I&D of the left ring finger. Dr Garcia. She will be booked accordingly. Time Spent With Patient Time: Total time managing care of this patient today ____ minutes. Procedures Date of Service Date of Service: 02/21/23
--- NOTE | 2023-02-21 09:09 | W.PM.OPN ---
Operative Note Operative Note Date of Service: 02/21/23 Narrative: Operative Note Narrative: Preop diagnosis: 1. Left hand and ring finger infection Postop diagnosis: 1. Left ring finger flexor tenosynovitis 2. Left hand infection Procedure: 1. Left ring finger I and D and I and D of flexor tendon sheath 2. Left carpal tunnel release, and I&D of the carpal tunnel Surgeon: Barbara Garcia MD Anesthesia: General Anesthesia Findings: Large purulent blister extending over the dorsum of the ring finger. Creamy yellow purulence found in the flexor tendon sheath of the left ring finger extending from the A1 honorio distally to the felon that likely started all of this in the pad of the ring finger. Implants: None Tourniquet time: 32 minutes EBL: 5.0 ml Specimen: Cultures Drains: None Complications: None Disposition: Brought to the recovery room in stable condition Plan: Admit back to floor for IV antibiotics Check cultures and adjust antibiotics as indicated Wound check and dressing change tomorrow. Encourage gentle range of motion of other digits for now. Once infection significantly improved, early OT for range of motion I recommended Plan on possible return to the operating room on Saturday for repeat I and D if she does not have significant improvement over the next few days. Indications: The patient is a 62 year old woman with left ring finger and hand infection in patient who caught her finger in a car door about 4 days ago . The risks and benefits of operative treatment, including but not limited to risk of damage to blood vessels, nerves, tendons, infection, recurrence, persistent pain or numbness, incomplete resolution of preoperative symptoms, or need for further surgery were discussed with the patient and they wished to proceed with surgery. Procedure: Once consent was obtained patient was brought back to the operating suite and placed in the operating table in a supine position. . Perioperative antibiotics and anesthesia was administered by the anesthesia team. A tourniquet was applied to the proximal aspect of the left upper extremity and the limb was prepped and draped in a standard surgical fashion. The limb was elevated exsanguinated with Esmarch bandage and the tourniquet inflated to 250 mm of mercury for a total tourniquet time of 32 minutes. I began with an oblique incision over the pad of the left ring finger where she had a wound that likely started all of this, and the apex of an abscess. Creamy to yellow purulence was found and cultured. I then debrided the large bullae over the dorsal aspect of the ring finger, as it was full of purulent fluid. I made an interrupted Tom type incision over the volar aspect of the patient's left ring finger. The incisions were made with a 15. Blade through the skin to the subcutaneous tissues. I dissected down to the level of the flexor tendon sheath using tenotomy scissors with care being taken to protect the neurovascular structures. Purulence was found in and around the flexor tendon sheath over the middle phalanx, proximal phalanx and the A1 honorio area. The A1 honorio was opened longitudinally using a 15. Blade. Creamy yellow purulence was found within the flexor tendon sheath. Cultures were taken of the creamy yellow purulence within the flexor tendon sheath. These wounds were copiously irrigated with normal saline. I also used an Angiocath and a syringe to irrigate from proximal to distal through the flexor tendon sheath. Once satisfied with this I then made a carpal tunnel release by making a 2.5 cm longitudinal incision directly over the patient's carpal tunnel. No purulence was found in the subcutaneous tissues in this area. I then released the carpal tunnel by making a longitudinal incision in the transverse carpal ligament. There was some hyperemia and some watery fluid but no creamy purulence found within the carpal tunnel. I then copiously irrigated about the carpal tunnel with normal saline. At this point the tourniquet was deflated and hemostasis obtained with a brief period of local pressure. The wounds were again copiously irrigated with normal saline. Some of the skin edges were loosely reapproximated with 5-0 nylon suture. A digital block was performed using some 0.5% plain ropivacaine for postop pain control and a sterile dressing was applied. The patient appears to have tolerated the procedure well and with no complications. All digits were well vascularized conclusion of the case.
--- NOTE | 2023-02-21 09:42 | MHC.CM.PN ---
PATIENT IS FULLY INDEPENDENT NO DME OR [facility] SERVICES NO HCP ON FILE BUT SHE IS AWARE THAT CASE MANAGEMENT CAN ASSIST WITH COMPLETION IF SHE CHOOSES TO DO SO. PCP VERIFIED. PLAN WILL BE HOME - SELF CARE
--- NOTE | 2023-02-21 09:50 | P.CONAN_ITS ---
HPI - Anesthesia Eval Consult details Narrative: abscess finger PMFSH Active Problems Active Problems: All Active Problems (Updated 02/21/23 @ 09:47 by Shira Sharp RN) Abscess of finger, left (Acute) Cellulitis of face (Acute) Past Medical History Medical History (Updated 02/21/23 @ 09:47 by Shira Sharp RN) Hx of ectopic Family History Family history of problems with anesthesia: No Surgical History Surgical History (Updated 02/21/23 @ 09:47 by Shira Sharp RN) Hx of foot surgery History of Problems with Anesthesia: No Social History Social History Household Members: None Housing: House Do you presently have visiting nurse or other home services: No Patient Tobacco Use Status: Never used Tobacco Smoked in Last 30 Days: No e-Cigarette/Vaping Use: Never Used Use of substances other than those prescribed or required for medical reasons: No Currently Displaying Signs/Symptoms of Drug Intoxication Withdrawal: No Any prior treatment program specific to substance use: No Have you been hit, kicked, punched, or otherwise hurt by someone within the past year? If so, by whom?: No Do you feel safe in your current relationship?: Yes Is there a partner from a previous relationship who is making you feel unsafe now?: No Are you made to feel afraid or neglected: No Advance Directives: No Advance Directives Information Provided: No Do you have thoughts of harming others: None Do you have a plan to hurt others: No Plan Recently lost weight without trying: No Eating poorly because of decreased appetite: No Nutrition Risks: No Nutritional Risk Patient : No : No Poor oral hygiene: No service: No Current occupational status: employed Meds Allergies Allergy/AdvReac Type Severity Reaction Status Date / Time No Known Allergies Allergy Unverified 07/07/20 16:32 Active Medications: Current Medications Acetaminophen (Acetaminophen 325 Mg Tablet) 650 mg PO Q6H PRN PRN Reason: Pain, Mild (Pain Scale 1-3) Bupropion HCl (Bupropion Hcl Xl 300 Mg Tab.Er.24h) 300 mg PO DAILY [facility] Last Admin: 02/21/23 08:36 Dose: 300 mg Escitalopram Oxalate (Escitalopram Oxalate 20 Mg Tablet) 20 mg PO BEDTIME [facility] Last Admin: 05/03/23 22:54 Dose: Not Given Cefazolin Sodium/Dextrose (Ancef) 2 gm in 50 mls @ 100 mls/hr IV Q8H [facility] Last Infusion: 02/21/23 06:31 Dose: Infused Vancomycin HCl 750 mg/ Sodium (Chloride) 265 mls @ 265 mls/hr IV Q12H [facility] Lorazepam (Lorazepam 0.5 Mg Tablet) 0.5 mg PO DAILY PRN PRN Reason: anxiety Last Admin: 02/20/23 22:52 Dose: 0.5 mg Morphine Sulfate (Morphine Sulfate 4 Mg/Ml Cartridge) 4 mg IVPUSH Q4H PRN; Protocol PRN Reason: Pain, Severe (Pain Scale 7-10) Last Admin: 02/21/23 08:35 Dose: 4 mg Omeprazole (Omeprazole 20 Mg Capsule.Dr) 20 mg PO DAILY@0630 [facility] Last Admin: 02/21/23 05:19 Dose: 20 mg Ondansetron HCl (Ondansetron Hcl 4 Mg/2 Ml Vial) 4 mg IVPUSH Q8H PRN PRN Reason: Nausea and Vomiting Pharmacy Consult (Consult Rx Perform Med Rec) 1 each MISCELLANE ONCE PRN PRN Reason: Consult order Pharmacy Consult (Consult Rx Vancomycin Dosing) 1 each MISCELLANE DAILY PRN PRN Reason: Consult order Primidone (Primidone 50 Mg Tablet) 100 mg PO DAILY [facility] Last Admin: 02/21/23 08:36 Dose: 100 mg Sodium Chloride (0.9 % Sodium Chloride Flush 3 Ml Syringe) [facility] Last Admin: 02/21/23 08:36 Dose: 3 ml Trazodone HCl (Trazodone Hcl 100 Mg Tablet) 100 mg PO BEDTIME PRN PRN Reason: insomnia Last Admin: 02/20/23 22:52 Dose: 100 mg Home Medications Medication Instructions Recorded Confirmed Last Taken Type bupropion HCl 300 mg 24 hr tablet, 300 mg PO DAILY 02/20/23 02/20/23 02/20/23 History extended release escitalopram oxalate 20 mg tablet 20 mg PO BEDTIME 02/20/23 02/20/23 02/19/23 History ibuprofen 800 mg tablet 800 mg PO BID PRN Pain 02/20/23 02/20/23 02/20/23 History lorazepam 0.5 mg tablet 0.5 mg PO DAILY PRN anxiety 02/20/23 02/20/23 02/17/23 History omeprazole 20 mg capsule,delayed 20 mg PO DAILY 02/20/23 02/20/23 02/17/23 History release primidone 50 mg tablet 100 mg PO DAILY 02/20/23 02/20/23 02/20/23 History trazodone 100 mg tablet 100 mg PO BEDTIME PRN insomnia 02/20/23 02/20/23 02/19/23 History Exam Exam Date and Time: February 21, 2023 0950 Height,Weight and Vital Signs: Height 5 ft 1 in Weight 53.524 kg Last Vital Signs Temp 99.7 F 02/21/23 07:24 Pulse 108 H 02/21/23 07:24 Resp 19 02/21/23 08:35 BP 105/64 02/21/23 07:24 Pulse Ox 93 02/21/23 07:24 O2 Del Method Room Air 02/21/23 07:24 Pertinent Lab Results Pertinent Lab Results: Laboratory Tests 02/20/23 02/20/23 02/20/23 20:33 20:33 20:33 WBC 20.1 H RBC 3.62 L Hgb 12.4 Hct 35.1 L MCV 97.0 MCH 34.3 H MCHC 35.3 H RDW 12.5 Plt Count 269 MPV 8.9 L Immature Gran % (Auto) 0.8 H Neut % (Auto) 87.8 H Lymph % (Auto) 5.[address] [place] % (Auto) 5.8 Eos % (Auto) 0.0 Baso % (Auto) 0.5 Lymph # (Auto) 1.[address] [place] # (Auto) 1.2 Eos # (Auto) 0.0 Baso # (Auto) 0.1 Abs Immat Gran (auto) 0.16 H Absolute Neuts (auto) 17.7 H Absolute Nucleated RBC 0.000 Nucleated RBC % (auto) 0.0 ESR PT 11.0 INR 1.0 APTT 29.2 Sodium 132 L Potassium 4.3 Chloride 98 Carbon Dioxide 23 Anion Gap 15 BUN 7 L Creatinine 0.66 Estim Creat Clear Calc 67.5 Estimated GFR > 60 Random Glucose 102 Lactic Acid Calcium 9.0 D Total Bilirubin 1.0 AST 23 ALT 20 Alkaline Phosphatase 70 C-Reactive Protein 17.63 H Total Protein 6.8 Albumin 4.1 COVID-19 (SANJEEV) COVID-19 Clin Com 02/20/23 02/20/23 02/20/23 20:33 20:48 21:41 WBC RBC Hgb Hct MCV MCH MCHC RDW Plt Count MPV Immature Gran % (Auto) Neut % (Auto) Lymph % (Auto) [place] % (Auto) Eos % (Auto) Baso % (Auto) Lymph # (Auto) [place] # (Auto) Eos # (Auto) Baso # (Auto) Abs Immat Gran (auto) Absolute Neuts (auto) Absolute Nucleated RBC Nucleated RBC % (auto) ESR 39 H PT INR APTT Sodium Potassium Chloride Carbon Dioxide Anion Gap BUN Creatinine Estim Creat Clear Calc Estimated GFR Random Glucose Lactic Acid 0.8 Calcium Total Bilirubin AST ALT Alkaline Phosphatase C-Reactive Protein Total Protein Albumin COVID-19 (SANJEEV) Negative COVID-19 [employer] See Note 02/21/23 02/21/23 02/21/23 07:40 07:40 07:40 WBC 20.9 H RBC 3.41 L Hgb 11.5 L Hct 34.4 L MCV 100.9 H MCH 33.7 H MCHC 33.4 RDW 12.9 Plt Count 277 MPV 9.1 L Immature Gran % (Auto) Neut % (Auto) Lymph % (Auto) [place] % (Auto) Eos % (Auto) Baso % (Auto) Lymph # (Auto) [place] # (Auto) Eos # (Auto) Baso # (Auto) Abs Immat Gran (auto) Absolute Neuts (auto) Absolute Nucleated RBC 0.000 Nucleated RBC % (auto) 0.0 ESR PT INR APTT Sodium 137 Potassium 4.5 Chloride 101 Carbon Dioxide 26 Anion Gap 15 BUN 6 L Creatinine 0.68 0.68 Estim Creat Clear Calc 65.5 65.5 Estimated GFR > 60 > 60 Random Glucose 87 Lactic Acid Calcium 8.6 Total Bilirubin AST ALT Alkaline Phosphatase C-Reactive Protein Total Protein Albumin COVID-19 (SANJEEV) COVID-19 [employer] Com Airway Mallampati Class: II TM Dist: >3cm Neck ROM: Full Heart: rrr Lungs: cta Assessment and Plan Assessment Anesthesia Assessment: Anesthesia Plan Discussed and Chart Reviewed Final Anesthetic Review Family History of Problems with Anesthesia: No History of Problems with Anesthesia: No NPO: Yes ASA Class: II Final Preanesthetic Review: No Changes in Pt Med Stat, Meds/Allgs Chart Reviewed, Consent Obtained/Reviewed and Anes Risks/Benef Reviewed Patient Risk: Low Anesthetic Plan Anesthetic Plan: MAC: Disposition: Standard PACU
--- NOTE | 2023-02-21 10:37 | MHC.CM.PN ---
PATIENT LIKELY TO REMAIN FOR IV ABX. DC SATURDAY (SATURDAY LATEST)
--- NOTE | 2023-02-21 10:39 | MHC.SHP ---
Pre-Procedural Eval Section A Date of Service: 02/21/23 The patient is an INPATIENT: No Changes since office visit: No Cold of Flu in the past 2 weeks, No New Medical Problems, No Changes in Medication and No Patient answered all questions The History & Physical has been completed within 30 days and I have reviewed it.: Yes Section B Chief Complaint: Abscess of 4th Digit of left hand Allergies: Allergies Allergy/AdvReac Type Severity Reaction Status Date / Time No Known Allergies Allergy Unverified 07/07/20 16:32 Exam Exam Comment: The patient was seen and evaluated by me in preop hold this morning. The patient was alert oriented and in no acute distress, but complaining of significant pain in her left hand. Significant swelling of the left ring finger with visible purulence beneath the blisters present on the dorsal aspect of the finger. Her original wound was in the pulp of the finger . Tender along the flexor tendon sheath extending up to the A1 honorio and into the mid palm. No tenderness over the carpal tunnel Erythema and swelling extending dorsally above the wrist Plan I have reviewed the history and physical and performed a pertinent physical examination on my patient. No changes have occurred unless specified. Assessment and plan: 1. Left ring finger flexor tenosynovitis and hand infection I educated her about this condition Am recommending operative I and D The risks and benefits of operative treatment were discussed with the patient and the patient wishes to proceed with surgery. These risks include, but are not limited to risk of damage to blood vessels, nerves, tendons, infection, recurrence, incomplete relief of preoperative symptoms, persistent pain, possible need for further surgery and the risks associated with regional blocks and anesthesia. The plan is to take the patient to the operating room today for the following procedures: 1. Left ring finger and hand I&D 2. [ ] All of the preoperative paperwork including the consent was filled out today. All the patient's questions were answered. Time Spent With Patient Time: Total time managing care of this patient today ____ minutes.
[2023-02-21] MEDS: vancomycin HCL 750 MG in 0.9 % Sodium Chloride 250 ML 265 MG IV (14:24)
--- NOTE | 2023-02-21 16:27 | HO.PM.IMPN ---
Subjective Subjective Date of Service: 02/21/23 Interval History: seen and examined this morning follow up for left hand infection seen after I&D in OR pain improved due to nerve block denies fever, chills Review of Systems Review of Systems: Yes all other systems are reviewed and are negative Constitutional Constitutional: Denies chills and Denies fever(s) ENT Ears, Nose, Mouth, and Throat: Denies dizziness Cardiovascular Cardiovascular: Denies chest pain, Denies palpitations and Denies dyspnea Respiratory Respiratory: Denies cough and Denies dyspnea Gastrointestinal Gastrointestinal: Denies abdominal pain, Denies nausea and Denies vomiting Neurologic Neurologic: Denies dizziness Endocrine Endocrine: Denies palpitations Physical Exam Vital Signs: Vital Signs: Last Vital Signs Temp 97.4 F 02/21/23 15:28 Pulse 88 02/21/23 15:28 Resp 20 02/21/23 15:28 BP 106/63 02/21/23 15:28 Pulse Ox 96 02/21/23 15:28 O2 Del Method Room Air 02/21/23 15:28 BMI result Body Mass Index 22.3 Const: General: cooperative, comfortable, alert and awake Nutritional Appearance: average body habitus Orientation/consciousness: patient oriented x3 Resp: Effort & Inspection: normal respiratory effort, able to speak in complete sentences, no respiratory distress and no use of accessory muscles Cardio: Rate: regular rate Heart sounds: S1 normal heart sound present and S2 normal heart sound present GI: Inspection: No distended Palpation (GI): Soft to palpation and nontender Neuro: General: patient oriented x3 and CN's II-XI intact bilaterally Extrem: Other: left hand wrapped in C/D/I dressing Objective Data Active Medications Acetaminophen (Acetaminophen 325 Mg Tablet) 650 mg PO Q6H PRN PRN Reason: Pain, Mild (Pain Scale 1-3) Bupropion HCl (Bupropion Hcl Xl 300 Mg Tab.Er.24h) 300 mg PO DAILY [facility] Last Admin: 02/21/23 08:36 Dose: 300 mg Documented By: COTSTEPHANY Escitalopram Oxalate (Escitalopram Oxalate 20 Mg Tablet) 20 mg PO BEDTIME [facility] Last Admin: 02/20/23 22:54 Dose: Not Given Documented By: SURYA Non-Admin Reason: Med Not Available Hydromorphone HCl (Hydromorphone Hcl 0.5 Mg/0.5 Ml Syringe) 0.5 mg IVPUSH Q4H PRN; Protocol PRN Reason: Pain, Severe (Pain Scale 7-10) Cefazolin Sodium/Dextrose (Ancef) 2 gm in 50 mls @ 100 mls/hr IV Q8H [facility] Last Infusion: 02/21/23 14:20 Dose: 0 mls/hr Documented By: COTEMA Vancomycin HCl 750 mg/ Sodium (Chloride) 265 mls @ 265 mls/hr IV Q12H [facility] Last Infusion: 02/21/23 15:31 Dose: 0 mls/hr Documented By: COTEMA Lorazepam (Lorazepam 0.5 Mg Tablet) 0.5 mg PO DAILY PRN PRN Reason: anxiety Last Admin: 02/20/23 22:52 Dose: 0.5 mg Documented By: SURYA Omeprazole (Omeprazole 20 Mg Capsule.Dr) 20 mg PO DAILY@0630 [facility] Last Admin: 02/21/23 05:19 Dose: 20 mg Documented By: FABIANA Ondansetron HCl (Ondansetron Hcl 4 Mg/2 Ml Vial) 4 mg IVPUSH Q8H PRN PRN Reason: Nausea and Vomiting Oxycodone HCl (Oxycodone Hcl Immed Release 5 Mg Tablet) 5 mg PO Q6H PRN PRN Reason: Pain, Moderate(Pain Scale 4-6) Pharmacy Consult (Consult Rx Perform Med Rec) 1 each MISCELLANE ONCE PRN PRN Reason: Consult order Pharmacy Consult (Consult Rx Vancomycin Dosing) 1 each MISCELLANE DAILY PRN PRN Reason: Consult order Primidone (Primidone 50 Mg Tablet) 100 mg PO DAILY [facility] Last Admin: 02/21/23 08:36 Dose: 100 mg Documented By: COTEMA Sodium Chloride (0.9 % Sodium Chloride Flush 3 Ml Syringe) 3 ml IVFLUSH QSHIFT [facility] Last Admin: 02/21/23 14:25 Dose: 3 ml Documented By: COTEMA Trazodone HCl (Trazodone Hcl 100 Mg Tablet) 100 mg PO BEDTIME PRN PRN Reason: insomnia Last Admin: 02/20/23 22:52 Dose: 100 mg Documented By: SURYA Labs 02/21/23 07:40 02/21/23 07:40 Labs: Laboratory Results - last 24 hr 02/20/23 02/20/23 02/20/23 20:33 20:33 20:33 MCV 97.0 MCH 34.3 H MCHC 35.3 H RDW 12.5 Plt Count 269 MPV 8.9 L Immature Gran % (Auto) 0.8 H Neut % (Auto) 87.8 H Lymph % (Auto) 5.1 L [place] % (Auto) 5.8 Eos % (Auto) 0.0 Baso % (Auto) 0.5 Lymph # (Auto) 1.0 L [place] # (Auto) 1.2 Eos # (Auto) 0.0 Baso # (Auto) 0.1 Abs Immat Gran (auto) 0.16 H Absolute Neuts (auto) 17.7 H Absolute Nucleated RBC 0.000 Nucleated RBC % (auto) 0.0 ESR PT 11.0 INR 1.0 APTT 29.2 Anion Gap 15 Estim Creat Clear Calc 67.5 Estimated GFR > 60 Random Glucose 102 Lactic Acid Calcium 9.0 D Total Bilirubin 1.0 AST 23 ALT 20 Alkaline Phosphatase 70 C-Reactive Protein 17.63 H Total Protein 6.8 Albumin 4.1 COVID-19 (SANJEEV) COVID-[employer] 02/20/23 02/20/23 02/20/23 20:33 20:48 21:41 MCV MCH MCHC RDW Plt Count MPV Immature Gran % (Auto) Neut % (Auto) Lymph % (Auto) [place] % (Auto) Eos % (Auto) Baso % (Auto) Lymph # (Auto) [place] # (Auto) Eos # (Auto) Baso # (Auto) Abs Immat Gran (auto) Absolute Neuts (auto) Absolute Nucleated RBC Nucleated RBC % (auto) ESR 39 H PT INR APTT Anion Gap Estim Creat Clear Calc Estimated GFR Random Glucose Lactic Acid 0.8 Calcium Total Bilirubin AST ALT Alkaline Phosphatase C-Reactive Protein Total Protein Albumin COVID-19 (SANJEEV) Negative COVID-19 Clin Com See Note 02/21/23 02/21/23 02/21/23 07:40 07:40 07:40 MCV 100.9 H MCH 33.7 H MCHC 33.4 RDW 12.9 Plt Count 277 MPV 9.1 L Immature Gran % (Auto) Neut % (Auto) Lymph % (Auto) [place] % (Auto) Eos % (Auto) Baso % (Auto) Lymph # (Auto) [place] # (Auto) Eos # (Auto) Baso # (Auto) Abs Immat Gran (auto) Absolute Neuts (auto) Absolute Nucleated RBC 0.000 Nucleated RBC % (auto) 0.0 ESR PT INR APTT Anion Gap 15 Estim Creat Clear Calc 65.5 65.5 Estimated GFR > 60 > 60 Random Glucose 87 Lactic Acid Calcium 8.6 Total Bilirubin AST ALT Alkaline Phosphatase C-Reactive Protein Total Protein Albumin COVID-19 (SANJEEV) COVID-19 Clin Com Microbiology Microbiology Results: Microbiology 02/21/23 Unknown Gram Stain - Final Finger Left Ring 02/21/23 Unknown Gram Stain - Final Finger Left Ring Assessment and Plan (1) Abscess of finger, left: Status: Acute Plan Pt is a 62-year-old female with PMH significant for anxiety, essentaial tremor, and anxiety?who presents to the ED with?increasing pain and swelling after closing her left 4th finger in a door on 02/17/2023 Left hand cellulitis with abscess/4th finger flexor tensosynovitis s/p I&D by ortho 02/21 wound culture - GPC - follow final culture results continue Vanco and cefazolin, started 01/21 pain management Facial rash improving Hyponatremia sodium 132 on admit improved essential tremor Continue primidone Mood Continue home wellbutrin, lexapro Full Code Attending:?Dr. Cordova DVT Prophylaxis: Pneumatic boots Patient requires ongoing inpatient hospitalization for management of left hand cellulitis and abscess and possible repeat I&D in OR early next week Time Spent With Patient Time: Total time managing care of this patient today ____ minutes. Quality Stroke Does the patient have a stroke diagnosis?: No VTE Prior VTE?: No VTE Risk Level:: Medical - moderate - high VTE Device Contraindication: N/A - Device Ordered VTE Drug Contraindication: Treatment Not Indicated
[2023-02-21] MEDS: oxyCODONE HCl Immed Release 5 MG TABLET PO (18:31)
[2023-02-21] MEDS: Acetaminophen 325 MG TABLET 650 MG PO (18:31)
[2023-02-21] MEDS: traZODone HCL 100 MG TABLET PO (21:27)
[2023-02-21] MEDS: Escitalopram Oxalate 20 MG TABLET PO (21:27)
[2023-02-22] MEDS: vancomycin HCL 750 MG in 0.9 % Sodium Chloride 250 ML 265 MG IV ×2 (01:42→14:03)
[2023-02-22 03:18] VITALS: BP 115/59; PULSE 80; RESP 15; TEMP 36.5; O2SAT 95
[2023-02-22] MEDS: Omeprazole 20 MG CAPSULE.DR PO (05:01)
[2023-02-22] MEDS: ceFAZolin Sodium/Dextrose,Iso 2 GM/50 ML PIGGYBACK IV ×3 (05:01→21:20)
[2023-02-22] MEDS: Acetaminophen 325 MG TABLET 650 MG PO ×2 (05:08→12:33)
[2023-02-22 06:12] LABS: Hematocrit 29.9 % (37.0-47.0); Hemoglobin 10.1 g/dl (12.0-16.0); Mean Corpuscular HGB Conc 33.8 g/dl (31.0-35.0); Mean Corpuscular Hemoglobin 33.8 pg (27.0-33.0); Mean Platelet Volume 8.8 fL (9.4-12.3); Platelet Count 272 X10*3/uL (160-400); Red Blood Count 2.99 X10*6/uL (4.20-5.50); Red Cell Distribution Width 12.8 % (11.0-16.0); White Blood Count 20.2 X10*3/uL (4.8-10.8)
[2023-02-22 06:47] LABS: Anion Gap 11 (12-20); Blood Urea Nitrogen 6 mg/dL (9-16); Calcium 8.3 mg/dL (8.4-10.2); Carbon Dioxide 29 mmol/L (22-29); Chloride 104 mmol/L (96-108); Creatinine Clr Calc Pharmacy 71.8; Estimated Glomerular Filt Rate > 60; Glucose Random 114 mg/dL (60-115); Potassium 4.1 mmol/L (3.3-5.1); Sodium 140 mmol/L (135-145)
[2023-02-22] MEDS: Primidone 50 MG TABLET 100 MG PO (07:26)
[2023-02-22] MEDS: 0.9 % Sodium Chloride Flush 3 ML SYRINGE IVFLUSH ×2 (07:26→17:10)
[2023-02-22] MEDS: buPROPion HCl XL 300 MG TAB.ER.24H PO (07:27)
[2023-02-22 07:39] VITALS: BP 127/62; PULSE 72; RESP 18; TEMP 36.2; O2SAT 98
[2023-02-22] MEDS: oxyCODONE HCl Immed Release 5 MG TABLET PO ×2 (09:25→21:17)
[2023-02-22 12:54] LABS: Vancomycin Trough 5.6 mcg/mL (10.0-20.0)
--- NOTE | 2023-02-22 13:14 | HE.PHANOTE ---
Vancomycing Dosing Level is 5.6 today. Will increase dose to vancomyicn 750 mg Q8H. New expected AUC 503 with a trough of 14.7. Next level is scheduled for 02/23 @ 1200. Andres RochaD
--- NOTE | 2023-02-22 13:52 | HO.POSTANES ---
Post Anesthesia Evaluation Post Anesthesia Evaluation Vital Signs: Vital Signs Temp Pulse Resp BP Pulse Ox O2 Del Method 02/22/23 07:39 97.2 F 72 18 127/62 98 Room Air 02/22/23 03:18 97.7 F 80 15 115/59 L 95 Room Air Anesthesia: General Mental Status: Awake Pain Control: Satisfactory Nausea/Vomiting: None Hydration: Adequate Anesthesia-Related Issues: No Anes. Related Issues
--- NOTE | 2023-02-22 13:59 | PM.PNORT ---
Subjective Subjective Date of Service: 02/22/23 Interval history: POD 1 s/p 1. Left ring finger I and D and I and D of flexor tendon sheath 2. Left carpal tunnel release, and I&D of the carpal tunnel No overnight events resting in bed elevating hand Physical Exam Vital Signs: Vital Signs: Last Vital Signs Temp 97.2 F 02/22/23 07:39 Pulse 72 02/22/23 07:39 Resp 18 02/22/23 07:39 BP 127/62 02/22/23 07:39 Pulse Ox 98 02/22/23 07:39 O2 Del Method Room Air 02/22/23 07:39 BMI result Body Mass Index 22.3 Const: General: cooperative, healthy appearing and no acute distress Resp: Effort & Inspection: normal respiratory effort and able to speak in complete sentences Cardio: Rate: regular rate Peripheral pulses: Peripheral pulses 2+ throughout GI: Palpation (GI): Soft to palpation Skin: General skin exam: no rashes or lesions noted Extrem: Other: Left ring finger incisions clean, dry and intact. No evidence of re-accumulation of pus or fluid. Limited motion due to pain. NVI. Procedures Date of Service Date of Service: 02/22/23 Progress Note: A&P Assessment and plan (1) Abscess of finger, left: Status: Acute Assessment and Plan: IV antibiotics Check cultures and adjust antibiotics as indicated Wound check and dressing changed prn Encourage gentle range of motion of other digits for now.? Once infection significantly improved, early OT for range of motion I recommended Plan on possible return to the operating room on Saturday for repeat I and D if she does not have significant improvement over the next few days. Time Spent With Patient Time: Total time managing care of this patient today ____ minutes. Quality Stroke Does the patient have a stroke diagnosis?: No VTE Prior VTE?: No VTE Risk Level:: Medical - moderate - high VTE Device Contraindication: N/A - Device Ordered VTE Drug Contraindication: Treatment Not Indicated
[2023-02-22] MEDS: Clindamycin Phosphate/D5W 600 MG/50 ML PIGGYBACK 100 MG IV ×2 (14:57→21:56)
--- NOTE | 2023-02-22 15:01 | HO.PM.IMPN ---
Subjective Subjective Date of Service: 02/22/23 Interval History: seen and examined this morning follow up for let hand infection denies fever or chills pain under adequate control Review of Systems Review of Systems: Yes all other systems are reviewed and are negative Constitutional Constitutional: Denies chills and Denies fever(s) Cardiovascular Cardiovascular: Denies chest pain, Denies palpitations and Denies dyspnea Respiratory Respiratory: Denies cough and Denies dyspnea Gastrointestinal Gastrointestinal: Denies abdominal pain, Denies nausea and Denies vomiting Endocrine Endocrine: Denies palpitations Physical Exam Vital Signs: Vital Signs: Last Vital Signs Temp 97.2 F 02/22/23 07:39 Pulse 72 02/22/23 07:39 Resp 18 02/22/23 07:39 BP 127/62 02/22/23 07:39 Pulse Ox 98 02/22/23 07:39 O2 Del Method Room Air 02/22/23 07:39 BMI result Body Mass Index 22.3 Const: General: cooperative, comfortable, alert and awake Nutritional Appearance: average body habitus Orientation/consciousness: patient oriented x3 Resp: Effort & Inspection: normal respiratory effort, able to speak in complete sentences, no respiratory distress and no use of accessory muscles Cardio: Rate: regular rate Heart sounds: S1 normal heart sound present and S2 normal heart sound present GI: Inspection: No distended Palpation (GI): Soft to palpation and nontender Neuro: General: patient oriented x3 and CN's II-XI intact bilaterally Extrem: Other: left hand wrapped in C/D/I dressing Objective Data Active Medications Acetaminophen (Acetaminophen 325 Mg Tablet) 650 mg PO Q6H PRN PRN Reason: Pain, Mild (Pain Scale 1-3) Last Admin: 02/22/23 12:33 Dose: 650 mg Documented By: JENNIE Bupropion HCl (Bupropion Hcl Xl 300 Mg Tab.Er.24h) 300 mg PO DAILY [facility] Last Admin: 02/22/23 07:27 Dose: 300 mg Documented By: JENNIE Escitalopram Oxalate (Escitalopram Oxalate 20 Mg Tablet) 20 mg PO BEDTIME [facility] Last Admin: 02/21/23 21:27 Dose: 20 mg Documented By: DANIELA Hydromorphone HCl (Hydromorphone Hcl 0.5 Mg/0.5 Ml Syringe) 0.5 mg IVPUSH Q4H PRN; Protocol PRN Reason: Pain, Severe (Pain Scale 7-10) Last Admin: 02/21/23 21:26 Dose: 0.5 mg Documented By: DANIELA Cefazolin Sodium/Dextrose (Ancef) 2 gm in 50 mls @ 100 mls/hr IV Q8H [facility] Last Infusion: 02/22/23 13:27 Dose: 0 mls/hr Documented By: JENNIE Clindamycin Phosphate (Cleocin) 600 mg in 50 mls @ 100 mls/hr IV Q8H [facility] Last Admin: 02/22/23 14:57 Dose: 100 mls/hr Documented By: JENNIE Lorazepam (Lorazepam 0.5 Mg Tablet) 0.5 mg PO DAILY PRN PRN Reason: anxiety Last Admin: 02/20/23 22:52 Dose: 0.5 mg Documented By: LINDAZECheryl Omeprazole (Omeprazole 20 Mg Capsule.Dr) 20 mg PO DAILY@0630 [facility] Last Admin: 02/22/23 05:01 Dose: 20 mg Documented By: DANIELA Ondansetron HCl (Ondansetron Hcl 4 Mg/2 Ml Vial) 4 mg IVPUSH Q8H PRN PRN Reason: Nausea and Vomiting Oxycodone HCl (Oxycodone Hcl Immed Release 5 Mg Tablet) 5 mg PO Q6H PRN PRN Reason: Pain, Moderate(Pain Scale 4-6) Last Admin: 02/22/23 09:25 Dose: 5 mg Documented By: JENNIE Pharmacy Consult (Consult Rx Perform Med Rec) 1 each MISCELLANE ONCE PRN PRN Reason: Consult order Primidone (Primidone 50 Mg Tablet) 100 mg PO DAILY [facility] Last Admin: 02/22/23 07:26 Dose: 100 mg Documented By: JENNIE Sodium Chloride (0.9 % Sodium Chloride Flush 3 Ml Syringe) 3 ml IVFLUSH QSHIFT [facility] Last Admin: 02/22/23 07:26 Dose: 3 ml Documented By: JENNIE Trazodone HCl (Trazodone Hcl 100 Mg Tablet) 100 mg PO BEDTIME PRN PRN Reason: insomnia Last Admin: 02/21/23 21:27 Dose: 100 mg Documented By: DANIELA Labs 02/22/23 06:05 02/22/23 06:05 Labs: Laboratory Results - last 24 hr 02/22/23 02/22/23 02/22/23 06:05 06:05 12:24 MCV 100.0 H MCH 33.8 H MCHC 33.8 RDW 12.8 Plt Count 272 MPV 8.8 L Absolute Nucleated RBC 0.000 Nucleated RBC % (auto) 0.0 Anion Gap 11 L Estim Creat Clear Calc 71.8 Estimated GFR > 60 Random Glucose 114 Calcium 8.3 L Vancomycin Trough 5.6 L Microbiology Microbiology Results: Microbiology 02/21/23 Unknown Gram Stain - Final Finger Left Ring Routine Culture - Preliminary Streptococcus pyogenes (Grp A) 02/21/23 Unknown Gram Stain - Final Finger Left Ring Routine Culture - Preliminary Streptococcus pyogenes (Grp A) 02/20/23 20:48 Blood Culture - Preliminary Blood - Venous No growth after 24 hours. 02/20/23 20:48 Blood Culture - Preliminary Blood - Venous No growth after 24 hours. Assessment and Plan (1) Abscess of finger, left: Status: Acute (2) Cellulitis of face: Status: Acute Plan Pt is a 62-year-old female with PMH significant for anxiety, essentaial tremor, and anxiety?who presents to the ED with?increasing pain and swelling after closing her left 4th finger in a door on 02/17/2023 Left hand cellulitis with abscess/4th finger flexor tensosynovitis s/p left ring finger I&D of flexor tendon sheath and left carpal tunnel release and I&D of the carpal tunnel with ortho / wound culture - strep pyogenes initially treated with IV Vanco and cefazolin, will stop vanco and add clinda ID consult pending pain management dressing changes per ortho rec possible need for repeat I&D on Saturday depending on course over the weekend Facial rash resolved Hyponatremia sodium 132 on admit improved essential tremor Continue primidone Mood Continue home wellbutrin, lexapro Full Code Attending:?Dr. Cordova DVT Prophylaxis: Pneumatic boots Patient requires ongoing inpatient hospitalization for management of left hand cellulitis and abscess and possible repeat I&D in OR early next week Time Spent With Patient Time: Total time managing care of this patient today ____ minutes. Quality Stroke Does the patient have a stroke diagnosis?: No VTE Prior VTE?: No VTE Risk Level:: Medical - moderate - high VTE Device Contraindication: N/A - Device Ordered VTE Drug Contraindication: Treatment Not Indicated
[2023-02-22 15:14] VITALS: BP 120/68; PULSE 84; RESP 20; TEMP 36.9; O2SAT 98
[2023-02-22] MEDS: HYDROmorphone HCl 0.5 MG/0.5 ML SYRINGE IVPUSH (17:10)
[2023-02-22 20:00] VITALS: BP 125/73; PULSE 86; RESP 18; TEMP 36.9; O2SAT 94
[2023-02-22] MEDS: traZODone HCL 100 MG TABLET PO (21:17)
[2023-02-22] MEDS: Escitalopram Oxalate 20 MG TABLET PO (21:17)
[2023-02-22] MEDS: Docusate Sodium 100 MG CAPSULE PO (21:17)
--- NOTE | 2023-02-23 00:02 | P.CNID_ITS ---
History of Present Illness Data of Consult Service Date: 02/23/23 Requesting physician: Brielle Huerta Primary Care Provider: Rodriguez White MD [facility] Reason for consult: left fourth finger swelling She has pain and swelling left fourth finger She had finger stuck in door of car and injured She has no fever or chills. Culture shows Group A strep of finger. Review of Systems Review of Systems: Yes all other systems are reviewed and are negative PMFSH Past Medical History Medical History Hx of ectopic Family History Family history: reviewed and not pertinent Surgical History Surgical History Hx of foot surgery Social History Social History Household Members: None Housing: House Do you presently have visiting nurse or other home services: No Patient Tobacco Use Status: Never used Tobacco Smoked in Last 30 Days: No e-Cigarette/Vaping Use: Never Used Use of substances other than those prescribed or required for medical reasons: No Currently Displaying Signs/Symptoms of Drug Intoxication Withdrawal: No Any prior treatment program specific to substance use: No Have you been hit, kicked, punched, or otherwise hurt by someone within the past year? If so, by whom?: No Do you feel safe in your current relationship?: Yes Is there a partner from a previous relationship who is making you feel unsafe now?: No Are you made to feel afraid or neglected: No Are you DNR?: No Advance Directives: No Advance Directives Information Provided: No Do you have thoughts of harming others: None Do you have a plan to hurt others: No Plan Recently lost weight without trying: No Eating poorly because of decreased appetite: No Nutrition Risks: No Nutritional Risk Patient : No : No Poor oral hygiene: No service: No Current occupational status: employed Meds Allergies Allergy/AdvReac Type Severity Reaction Status Date / Time No Known Allergies Allergy Unverified 07/07/20 16:32 Active Medications: Current Medications Acetaminophen (Acetaminophen 325 Mg Tablet) 650 mg PO Q6H PRN PRN Reason: Pain, Mild (Pain Scale 1-3) Last Admin: 02/22/23 12:33 Dose: 650 mg Bupropion HCl (Bupropion Hcl Xl 300 Mg Tab.Er.24h) 300 mg PO DAILY [facility] Last Admin: 02/22/23 07:27 Dose: 300 mg Docusate Sodium (Docusate Sodium 100 Mg Capsule) 100 mg PO BEDTIME [facility] Last Admin: 02/22/23 21:17 Dose: 100 mg Escitalopram Oxalate (Escitalopram Oxalate 20 Mg Tablet) 20 mg PO BEDTIME [facility] Last Admin: 02/22/23 21:17 Dose: 20 mg Hydromorphone HCl (Hydromorphone Hcl 0.5 Mg/0.5 Ml Syringe) 0.5 mg IVPUSH Q4H PRN; Protocol PRN Reason: Pain, Severe (Pain Scale 7-10) Last Admin: 02/22/23 17:10 Dose: 0.5 mg Cefazolin Sodium/Dextrose (Ancef) 2 gm in 50 mls @ 100 mls/hr IV Q8H [facility] Last Infusion: 02/22/23 21:56 Dose: Infused Clindamycin Phosphate (Cleocin) 600 mg in 50 mls @ 100 mls/hr IV Q8H [facility] Last Infusion: 02/22/23 22:28 Dose: Infused Lorazepam (Lorazepam 0.5 Mg Tablet) 0.5 mg PO DAILY PRN PRN Reason: anxiety Last Admin: 02/20/23 22:52 Dose: 0.5 mg Omeprazole (Omeprazole 20 Mg Capsule.Dr) 20 mg PO DAILY@0630 [facility] Last Admin: 02/22/23 05:01 Dose: 20 mg Ondansetron HCl (Ondansetron Hcl 4 Mg/2 Ml Vial) 4 mg IVPUSH Q8H PRN PRN Reason: Nausea and Vomiting Oxycodone HCl (Oxycodone Hcl Immed Release 5 Mg Tablet) 5 mg PO Q6H PRN PRN Reason: Pain, Moderate(Pain Scale 4-6) Last Admin: 02/22/23 21:17 Dose: 5 mg Pharmacy Consult (Consult Rx Perform Med Rec) 1 each MISCELLANE ONCE PRN PRN Reason: Consult order Polyethylene Glycol (Polyethylene Glycol 3350 17 Gm Powd.Pack) 17 gm PO DAILY PRN PRN Reason: Constipation Primidone (Primidone 50 Mg Tablet) 100 mg PO DAILY [facility] Last Admin: 02/22/23 07:26 Dose: 100 mg Senna (Sennosides 8.6 Mg Tablet) 8.6 mg PO DAILY [facility] Sodium Chloride (0.9 % Sodium Chloride Flush 3 Ml Syringe) 3 ml IVFLUSH QSHIFT [facility] Last Admin: 02/22/23 22:28 Dose: Not Given Trazodone HCl (Trazodone Hcl 100 Mg Tablet) 100 mg PO BEDTIME PRN PRN Reason: insomnia Last Admin: 02/22/23 21:17 Dose: 100 mg Home Medications Medication Instructions Recorded Confirmed Last Taken Type bupropion HCl 300 mg 24 hr tablet, 300 mg PO DAILY 02/20/23 02/20/23 02/20/23 History extended release escitalopram oxalate 20 mg tablet 20 mg PO BEDTIME 02/20/23 02/20/23 02/19/23 History ibuprofen 800 mg tablet 800 mg PO BID PRN Pain 02/20/23 02/20/23 02/20/23 History lorazepam 0.5 mg tablet 0.5 mg PO DAILY PRN anxiety 02/20/23 02/20/23 02/17/23 History omeprazole 20 mg capsule,delayed 20 mg PO DAILY 02/20/23 02/20/23 02/17/23 History release primidone 50 mg tablet 100 mg PO DAILY 02/20/23 02/20/23 02/20/23 History trazodone 100 mg tablet 100 mg PO BEDTIME PRN insomnia 02/20/23 02/20/23 02/19/23 History Physical Exam Vital Signs: Vital Signs: Last Vital Signs Temp 98.4 F 02/22/23 20:00 Pulse 86 02/22/23 20:00 Resp 18 02/22/23 20:00 BP 125/73 02/22/23 20:00 Pulse Ox 94 02/22/23 20:00 O2 Del Method Room Air 02/22/23 20:00 BMI result Body Mass Index 22.3 Const: General: cooperative HEENT: Head: Yes normal to inspection Face and sinus: Yes normal facial exam Mouth: Normal oral and palatal mucosa present Teeth and gingiva: dentition normal Eyes: General: appearance normal, both eyes and all related structures Pupils: Equal, round and reactive pupils present Resp: Effort & Inspection: normal respiratory effort Cardio: Rate: regular rate Rhythm: regular rhythm GI: Palpation (GI): Soft to palpation and nontender : General: Yes no CVA tenderness Back/Spine/Pelvis: Back: no CVA tenderness Skin: General skin exam: no rashes or lesions noted Neuro: General: moves all extremities Cranial nerves: Yes Equal, round and reactive pupils present Extrem: Other: left fourth finger swelling,redness General: Yes normal to inspection Psych: Appearance: grossly normal Results Labs 02/22/23 06:05 02/22/23 06:05 Labs: Short CBC 02/22/23 Range/Units 06:05 WBC 20.2 H (4.8-10.8) X10*3/uL Hgb 10.1 L (12.0-16.0) g/dl Hct 29.9 L (37.0-47.0) % Plt Count 272 (160-400) X10*3/uL BMP 02/22/23 06:05 Sodium 140 Potassium 4.1 Chloride 104 Carbon Dioxide 29 BUN 6 L Creatinine 0.62 Calcium 8.3 L Microbiology Microbiology Results: Microbiology 02/20/23 20:48 Blood - Venous Blood Culture - Preliminary No growth after 48 hours. 02/20/23 20:48 Blood - Venous Blood Culture - Preliminary No growth after 48 hours. 02/21/23 Unknown Finger Left Ring Gram Stain - Final 02/21/23 Unknown Finger Left Ring Routine Culture - Preliminary Streptococcus pyogenes (Grp A) 02/21/23 Unknown Finger Left Ring Gram Stain - Final 02/21/23 Unknown Finger Left Ring Routine Culture - Preliminary Streptococcus pyogenes (Grp A) Assessment and Plan (1) Abscess of finger, left: Status: Acute She has Group A strep She has still significant swelling Plan Add Clindamycin to Kefzol,Clindamycin is not bacteriocidal like Kefzol but decreases bacterial burden and strep toxin production Blood cultures are negative so when improved probably leave on po Augmentin 875 bid for a week. Ortho/hand likely follow patient Time Spent With Patient Time: Total time managing care of this patient today ____ minutes.
[2023-02-23 04:00] VITALS: BP 128/68; PULSE 83; RESP 18; TEMP 36.4; O2SAT 95
[2023-02-23] MEDS: oxyCODONE HCl Immed Release 5 MG TABLET PO ×2 (04:31→18:24)
[2023-02-23] MEDS: ceFAZolin Sodium/Dextrose,Iso 2 GM/50 ML PIGGYBACK IV ×3 (04:32→21:07)
[2023-02-23] MEDS: Omeprazole 20 MG CAPSULE.DR PO (05:00)
[2023-02-23] MEDS: Clindamycin Phosphate/D5W 600 MG/50 ML PIGGYBACK 100 MG IV ×3 (05:00→22:37)
[2023-02-23 06:13] LABS: Creatinine Clr Calc Pharmacy 68.5; Estimated Glomerular Filt Rate > 60
[2023-02-23 07:00] VITALS: BP 104/59; PULSE 82; RESP 18; TEMP 36.1; O2SAT 93
[2023-02-23 07:24] LABS: Hematocrit 28.2 % (37.0-47.0); Hemoglobin 9.4 g/dl (12.0-16.0); Mean Corpuscular HGB Conc 33.3 g/dl (31.0-35.0); Mean Corpuscular Hemoglobin 33.2 pg (27.0-33.0); Mean Corpuscular Volume 99.6 fL (80.0-98.0); Mean Platelet Volume 9.1 fL (9.4-12.3); Platelet Count 310 X10*3/uL (160-400); Red Blood Count 2.83 X10*6/uL (4.20-5.50)
[2023-02-23] MEDS: buPROPion HCl XL 300 MG TAB.ER.24H PO (07:31)
[2023-02-23] MEDS: Primidone 50 MG TABLET 100 MG PO (07:31)
[2023-02-23] MEDS: Sennosides 8.6 MG TABLET PO (07:31)
[2023-02-23] MEDS: 0.9 % Sodium Chloride Flush 3 ML SYRINGE IVFLUSH ×3 (07:31→21:11)
[2023-02-23] MEDS: HYDROmorphone HCl 0.5 MG/0.5 ML SYRINGE IVPUSH ×3 (09:48→21:10)
--- NOTE | 2023-02-23 10:06 | P.PNIM_ITS ---
Subjective Subjective Date of Service: 02/23/23 Interval History: seen and examined this morning follow up for left hand tenosynovitis/cellulitis still having pain. no fever or chills Review of Systems Review of Systems: Yes all other systems are reviewed and are negative Constitutional Constitutional: Denies chills and Denies fever(s) ENT Ears, Nose, Mouth, and Throat: Denies dizziness Cardiovascular Cardiovascular: Denies chest pain, Denies palpitations and Denies dyspnea Respiratory Respiratory: Denies cough and Denies dyspnea Gastrointestinal Gastrointestinal: Denies abdominal pain, Denies diarrhea, Denies nausea and Denies vomiting Neurologic Neurologic: Denies dizziness Endocrine Endocrine: Denies palpitations Physical Exam Vital Signs: Vital Signs: Last Vital Signs Temp 97 F 02/23/23 07:00 Pulse 82 02/23/23 07:00 Resp 18 02/23/23 07:00 BP 104/59 L 02/23/23 07:00 Pulse Ox 93 02/23/23 07:00 O2 Del Method Room Air 02/23/23 07:00 BMI result Body Mass Index 22.3 Const: General: cooperative, comfortable, alert and awake Nutritional Appearance: average body habitus Orientation/consciousness: patient oriented x3 Resp: Effort & Inspection: normal respiratory effort, able to speak in complete sentences, no respiratory distress and no use of accessory muscles Cardio: Rate: regular rate Heart sounds: S1 normal heart sound present and S2 normal heart sound present GI: Inspection: No distended Palpation (GI): Soft to palpation and nontender Skin: Other: left hand no fluctuance Neuro: General: patient oriented x3 and CN's II-XI intact bilaterally Extrem: Other: left hand wrapped in C/D/I dressing Objective Data Active Medications Acetaminophen (Acetaminophen 325 Mg Tablet) 650 mg PO Q6H PRN PRN Reason: Pain, Mild (Pain Scale 1-3) Last Admin: 02/22/23 12:33 Dose: 650 mg Documented By: JENNIE Bupropion HCl (Bupropion Hcl Xl 300 Mg Tab.Er.24h) 300 mg PO DAILY [facility] Last Admin: 02/23/23 07:31 Dose: 300 mg Documented By: JENNIE Docusate Sodium (Docusate Sodium 100 Mg Capsule) 100 mg PO BEDTIME [facility] Last Admin: 02/22/23 21:17 Dose: 100 mg Documented By: TYLOR Escitalopram Oxalate (Escitalopram Oxalate 20 Mg Tablet) 20 mg PO BEDTIME [facility] Last Admin: 02/22/23 21:17 Dose: 20 mg Documented By: TYLOR Hydromorphone HCl (Hydromorphone Hcl 0.5 Mg/0.5 Ml Syringe) 0.5 mg IVPUSH Q4H PRN; Protocol PRN Reason: Pain, Severe (Pain Scale 7-10) Last Admin: 02/23/23 09:48 Dose: 0.5 mg Documented By: JENNIE Cefazolin Sodium/Dextrose (Ancef) 2 gm in 50 mls @ 100 mls/hr IV Q8H [facility] Last Infusion: 02/23/23 05:03 Dose: 0 mls/hr Documented By: TYLOR Clindamycin Phosphate (Cleocin) 600 mg in 50 mls @ 100 mls/hr IV Q8H [facility] Last Infusion: 02/23/23 05:37 Dose: 0 mls/hr Documented By: TYLOR Lorazepam (Lorazepam 0.5 Mg Tablet) 0.5 mg PO DAILY PRN PRN Reason: anxiety Last Admin: 02/20/23 22:52 Dose: 0.5 mg Documented By: SURYA Omeprazole (Omeprazole 20 Mg Capsule.Dr) 20 mg PO DAILY@0630 [facility] Last Admin: 02/23/23 05:00 Dose: 20 mg Documented By: TYLOR Ondansetron HCl (Ondansetron Hcl 4 Mg/2 Ml Vial) 4 mg IVPUSH Q8H PRN PRN Reason: Nausea and Vomiting Oxycodone HCl (Oxycodone Hcl Immed Release 5 Mg Tablet) 5 mg PO Q6H PRN PRN Reason: Pain, Moderate(Pain Scale 4-6) Last Admin: 02/23/23 04:31 Dose: 5 mg Documented By: TYLOR Pharmacy Consult (Consult Rx Perform Med Rec) 1 each MISCELLANE ONCE PRN PRN Reason: Consult order Polyethylene Glycol (Polyethylene Glycol 3350 17 Gm Powd.Pack) 17 gm PO DAILY PRN PRN Reason: Constipation Primidone (Primidone 50 Mg Tablet) 100 mg PO DAILY [facility] Last Admin: 02/23/23 07:31 Dose: 100 mg Documented By: JENNIE Senna (Sennosides 8.6 Mg Tablet) 8.6 mg PO DAILY [facility] Last Admin: 02/23/23 07:31 Dose: 8.6 mg Documented By: JENNIE Sodium Chloride (0.9 % Sodium Chloride Flush 3 Ml Syringe) 3 ml IVFLUSH QSHIFT [facility] Last Admin: 02/23/23 07:31 Dose: 3 ml Documented By: JENNIE Trazodone HCl (Trazodone Hcl 100 Mg Tablet) 100 mg PO BEDTIME PRN PRN Reason: insomnia Last Admin: 02/22/23 21:17 Dose: 100 mg Documented By: TYLOR Labs 02/23/23 05:45 02/23/23 05:46 Labs: Laboratory Results - last 24 hr 02/22/23 02/23/23 02/23/23 12:24 05:45 05:46 MCV 99.6 H MCH 33.2 H MCHC 33.3 RDW 13.0 Plt Count 310 MPV 9.1 L Absolute Nucleated RBC 0.000 Nucleated RBC % (auto) 0.0 Estim Creat Clear Calc 68.5 Estimated GFR > 60 Vancomycin Trough 5.6 L Microbiology Microbiology Results: Microbiology 02/20/23 20:48 Blood Culture - Preliminary Blood - Venous No growth after 48 hours. 02/20/23 20:48 Blood Culture - Preliminary Blood - Venous No growth after 48 hours. 02/21/23 Unknown Gram Stain - Final Finger Left Ring Routine Culture - Preliminary Streptococcus pyogenes (Grp A) 02/21/23 Unknown Gram Stain - Final Finger Left Ring Routine Culture - Preliminary Streptococcus pyogenes (Grp A) Assessment and Plan (1) Abscess of finger, left: Status: Acute (2) Tenosynovitis: Status: Acute Plan Pt is a 62-year-old female with PMH significant for anxiety, essentaial tremor, and anxiety?who presents to the ED with?increasing pain and swelling after closing her left 4th finger in a door on 02/17/2023 Left hand cellulitis with abscess/4th finger flexor tensosynovitis. wbc trending down s/p left ring finger I&D of flexor tendon sheath and left carpal tunnel release and I&D of the carpal tunnel with ortho 5/4 wound culture growing strep pyogenes initially treated with IV Vanco and cefazolin, will stop vanco and add clinda Blood cultures negative to date ID following pain management dressing changes per ortho rec possible need for repeat I&D on Saturday depending on course over the weekend Facial rash resolved Hyponatremia resolved essential tremor Continue primidone Mood Continue home wellbutrin, lexapro Full Code Attending:?Dr. Pozo DVT Prophylaxis: Pneumatic boots Patient requires ongoing inpatient hospitalization for management of left hand cellulitis and abscess with IV antibiotics and possible repeat I&D in OR early next week Time Spent With Patient Time: Total time managing care of this patient today ____ minutes. Quality Stroke Does the patient have a stroke diagnosis?: No VTE Prior VTE?: No VTE Risk Level:: Medical - moderate - high VTE Device Contraindication: N/A - Device Ordered VTE Drug Contraindication: Treatment Not Indicated
--- NOTE | 2023-02-23 10:21 | PM.PNORT ---
Subjective Subjective Date of Service: 02/23/23 Interval history: POD 2 s/p 1. Left ring finger I and D and I and D of flexor tendon sheath 2. Left carpal tunnel release, and I&D of the carpal tunnel No overnight events resting in the chair elevating hand Physical Exam Vital Signs: Vital Signs: Last Vital Signs Temp 97 F 02/23/23 07:00 Pulse 82 02/23/23 07:00 Resp 18 02/23/23 07:00 BP 104/59 L 02/23/23 07:00 Pulse Ox 93 02/23/23 07:00 O2 Del Method Room Air 02/23/23 07:00 BMI result Body Mass Index 22.3 Const: General: cooperative, healthy appearing and no acute distress Resp: Effort & Inspection: normal respiratory effort and able to speak in complete sentences Cardio: Rate: regular rate Peripheral pulses: Peripheral pulses 2+ throughout GI: Palpation (GI): Soft to palpation Skin: General skin exam: no rashes or lesions noted Extrem: Other: Left ring finger incisions clean, dry and intact. No evidence of re-accumulation of pus or fluid. Limited motion due to pain. NVI. Procedures Date of Service Date of Service: 02/23/23 Progress Note: A&P Assessment and plan (1) Abscess of finger, left: Status: Acute Assessment and Plan: IV antibiotics Check cultures and adjust antibiotics as indicated Wound check and dressing changed prn Encourage gentle range of motion of other digits for now.? Once infection significantly improved, early OT for range of motion I recommended Plan on possible return to the operating room on Saturday for repeat I and D if she does not have significant improvement over the next few days. Time Spent With Patient Time: Total time managing care of this patient today ____ minutes. Quality Stroke Does the patient have a stroke diagnosis?: No VTE Prior VTE?: No VTE Risk Level:: Medical - moderate - high VTE Device Contraindication: N/A - Device Ordered VTE Drug Contraindication: Treatment Not Indicated
[2023-02-23 15:13] LABS: Vancomycin Trough < 2.0 mcg/mL (10.0-20.0)
[2023-02-23 15:18] VITALS: BP 107/55; PULSE 75; RESP 20; TEMP 37.1; O2SAT 97
[2023-02-23 19:41] VITALS: BP 116/69; PULSE 83; RESP 18; TEMP 36.8; O2SAT 97
[2023-02-23] MEDS: traZODone HCL 100 MG TABLET PO (21:10)
[2023-02-23] MEDS: Docusate Sodium 100 MG CAPSULE PO (21:10)
[2023-02-23] MEDS: Escitalopram Oxalate 20 MG TABLET PO (21:14)
[2023-02-24 04:00] VITALS: BP 114/58; PULSE 82; RESP 18; TEMP 36.5; O2SAT 95
[2023-02-24] MEDS: ceFAZolin Sodium/Dextrose,Iso 2 GM/50 ML PIGGYBACK IV ×3 (04:41→20:55)
[2023-02-24] MEDS: HYDROmorphone HCl 0.5 MG/0.5 ML SYRINGE IVPUSH ×4 (04:43→21:35)
[2023-02-24] MEDS: Omeprazole 20 MG CAPSULE.DR PO (05:30)
[2023-02-24] MEDS: Clindamycin Phosphate/D5W 600 MG/50 ML PIGGYBACK 100 MG IV ×3 (05:30→22:28)
[2023-02-24 06:59] LABS: Creatinine Clr Calc Pharmacy 75.5; Estimated Glomerular Filt Rate > 60
[2023-02-24] MEDS: 0.9 % Sodium Chloride Flush 3 ML SYRINGE IVFLUSH ×3 (07:20→20:56)
[2023-02-24] MEDS: Sennosides 8.6 MG TABLET PO (07:20)
[2023-02-24] MEDS: buPROPion HCl XL 300 MG TAB.ER.24H PO (07:20)
[2023-02-24] MEDS: Primidone 50 MG TABLET 100 MG PO (07:20)
[2023-02-24 07:39] VITALS: BP 110/55; PULSE 71; RESP 18; TEMP 36.6; O2SAT 97
[2023-02-24] MEDS: oxyCODONE HCl Immed Release 5 MG TABLET PO ×2 (08:20→19:32)
--- NOTE | 2023-02-24 09:27 | P.EN_ITS ---
Event Note Date of Service: 02/24/23 Event Note: [place] Text placed to Dr. Patel to evaluate the patient with wound care recommendations. Received and agreed to see the patient. Dressing change was performed yesterday at bedside and was later redressed due to bleeding through the dressings. Deferred dressing change this morning until eval by wound care physician. Time Spent With Patient Time: Total time managing care of this patient today ____ minutes.
--- NOTE | 2023-02-24 09:52 | HO.PM.IMPN ---
Subjective Subjective Date of Service: 02/24/23 Interval History: seen and examined this morning follow up for left hand infection still reporting hand pain, but overall feels improvement no fever, chills Review of Systems Review of Systems: Yes all other systems are reviewed and are negative Constitutional Constitutional: Denies chills and Denies fever(s) Cardiovascular Cardiovascular: Denies chest pain, Denies palpitations and Denies dyspnea Respiratory Respiratory: Denies cough and Denies dyspnea Gastrointestinal Gastrointestinal: Denies abdominal pain, Denies constipation, Denies nausea and Denies vomiting Endocrine Endocrine: Denies palpitations Physical Exam Vital Signs: Vital Signs: Last Vital Signs Temp 97.8 F 02/24/23 07:39 Pulse 71 02/24/23 07:39 Resp 18 02/24/23 07:39 BP 110/55 L 02/24/23 07:39 Pulse Ox 97 02/24/23 07:39 O2 Del Method Room Air 02/24/23 07:39 O2 Flow Rate 95 02/24/23 04:00 BMI result Body Mass Index 22.3 Const: General: cooperative, comfortable, alert and awake Nutritional Appearance: average body habitus Orientation/consciousness: patient oriented x3 Resp: Effort & Inspection: normal respiratory effort, able to speak in complete sentences, no respiratory distress and no use of accessory muscles Cardio: Rate: regular rate Heart sounds: S1 normal heart sound present and S2 normal heart sound present GI: Inspection: No distended Palpation (GI): Soft to palpation and nontender Neuro: General: patient oriented x3 and CN's II-XI intact bilaterally Extrem: Other: left hand wrapped in C/D/I dressing Objective Data Active Medications Acetaminophen (Acetaminophen 325 Mg Tablet) 650 mg PO Q6H PRN PRN Reason: Pain, Mild (Pain Scale 1-3) Last Admin: 02/22/23 12:33 Dose: 650 mg Documented By: JENNIE Bupropion HCl (Bupropion Hcl Xl 300 Mg Tab.Er.24h) 300 mg PO DAILY [facility] Last Admin: 02/24/23 07:20 Dose: 300 mg Documented By: FATEMEH Docusate Sodium (Docusate Sodium 100 Mg Capsule) 100 mg PO BEDTIME [facility] Last Admin: 02/23/23 21:10 Dose: 100 mg Documented By: OZORALB Escitalopram Oxalate (Escitalopram Oxalate 20 Mg Tablet) 20 mg PO BEDTIME [facility] Last Admin: 02/23/23 21:14 Dose: 20 mg Documented By: BAKARI Hydromorphone HCl (Hydromorphone Hcl 0.5 Mg/0.5 Ml Syringe) 0.5 mg IVPUSH Q4H PRN; Protocol PRN Reason: Pain, Severe (Pain Scale 7-10) Last Admin: 02/24/23 04:43 Dose: 0.5 mg Documented By: BAKARI Cefazolin Sodium/Dextrose (Ancef) 2 gm in 50 mls @ 100 mls/hr IV Q8H [facility] Last Infusion: 02/24/23 05:28 Dose: 0 mls/hr Documented By: BAKARI Clindamycin Phosphate (Cleocin) 600 mg in 50 mls @ 100 mls/hr IV Q8H [facility] Last Infusion: 02/24/23 06:03 Dose: 0 mls/hr Documented By: BAKARI Lorazepam (Lorazepam 0.5 Mg Tablet) 0.5 mg PO DAILY PRN PRN Reason: anxiety Last Admin: 02/20/23 22:52 Dose: 0.5 mg Documented By: SURYA Omeprazole (Omeprazole 20 Mg Capsule.Dr) 20 mg PO DAILY@0630 [facility] Last Admin: 02/24/23 05:30 Dose: 20 mg Documented By: BAKARI Ondansetron HCl (Ondansetron Hcl 4 Mg/2 Ml Vial) 4 mg IVPUSH Q8H PRN PRN Reason: Nausea and Vomiting Oxycodone HCl (Oxycodone Hcl Immed Release 5 Mg Tablet) 5 mg PO Q6H PRN PRN Reason: Pain, Moderate(Pain Scale 4-6) Last Admin: 02/24/23 08:20 Dose: 5 mg Documented By: FATEMEH Pharmacy Consult (Consult Rx Perform Med Rec) 1 each MISCELLANE ONCE PRN PRN Reason: Consult order Polyethylene Glycol (Polyethylene Glycol 3350 17 Gm Powd.Pack) 17 gm PO DAILY PRN PRN Reason: Constipation Primidone (Primidone 50 Mg Tablet) 100 mg PO DAILY [facility] Last Admin: 02/24/23 07:20 Dose: 100 mg Documented By: FATEMEH Senna (Sennosides 8.6 Mg Tablet) 8.6 mg PO DAILY [facility] Last Admin: 02/24/23 07:20 Dose: 8.6 mg Documented By: FATEMEH Sodium Chloride (0.9 % Sodium Chloride Flush 3 Ml Syringe) 3 ml IVFLUSH QSHIFT [facility] Last Admin: 02/24/23 07:20 Dose: 3 ml Documented By: FATEMEH Trazodone HCl (Trazodone Hcl 100 Mg Tablet) 100 mg PO BEDTIME PRN PRN Reason: insomnia Last Admin: 02/23/23 21:10 Dose: 100 mg Documented By: KIMBERORALB Labs 02/23/23 05:45 02/24/23 05:29 Labs: Laboratory Results - last 24 hr 02/23/23 02/24/23 14:46 05:29 Estim Creat Clear Calc 75.5 Estimated GFR > 60 Vancomycin Trough < 2.0 L Microbiology Microbiology Results: Microbiology 02/21/23 Unknown Gram Stain - Final Finger Left Ring Routine Culture - Final Streptococcus pyogenes (Grp A) 02/21/23 Unknown Gram Stain - Final Finger Left Ring Routine Culture - Final Streptococcus pyogenes (Grp A) Assessment and Plan (1) Tenosynovitis: Status: Acute (2) Abscess of finger, left: Status: Acute Plan Pt is a 62-year-old female with PMH significant for anxiety, essentaial tremor, and anxiety?who presents to the ED with?increasing pain and swelling after closing her left 4th finger in a door on 02/17/2023 Left hand cellulitis with abscess/4th finger flexor tensosynovitis. wbc trending down s/p left ring finger I&D of flexor tendon sheath and left carpal tunnel release and I&D of the carpal tunnel with ortho 5/ wound culture growing strep pyogenes initially treated with IV Vanco and cefazolin, vanco stopped, clinda added Blood cultures negative to date ID following - augmentin for 7 days on d/c dressing changes per ortho rec possible need for repeat I&D on Saturday wound care eval pending Facial rash resolved Hyponatremia resolved essential tremor Continue primidone Mood Continue home wellbutrin, lexapro Full Code Attending:?Dr. Moreno DVT Prophylaxis: Pneumatic boots/early ambulation Patient requires ongoing inpatient hospitalization for management of left hand cellulitis/abscess with need for IV antibiotics, dialy wound care, close evaluation of wound and possible repeat I&D in OR early next week Time Spent With Patient Time: Total time managing care of this patient today ____ minutes. Quality Stroke Does the patient have a stroke diagnosis?: No VTE Prior VTE?: No VTE Risk Level:: Medical - moderate - high VTE Device Contraindication: N/A - Device Ordered VTE Drug Contraindication: Treatment Not Indicated
[2023-02-24 15:24] VITALS: BP 122/72; PULSE 80; RESP 18; TEMP 36.9; O2SAT 97
--- NOTE | 2023-02-24 19:22 | PC.NURSE ---
Dr Nuñez in to change pt dressing. Additional dose of IV Dilaudid ordered and given with good effect
[2023-02-24 19:30] VITALS: BP 127/60; PULSE 93; RESP 20; TEMP 36.3; O2SAT 96
[2023-02-24] MEDS: Docusate Sodium 100 MG CAPSULE PO (20:56)
[2023-02-24] MEDS: Escitalopram Oxalate 20 MG TABLET PO (20:56)
[2023-02-24] MEDS: LORazepam 0.5 MG TABLET PO (21:10)
--- NOTE | 2023-02-24 22:38 | PM.CNGS ---
History of Present Illness Consult details Consult date: 02/24/23 Reason for consult: wound care Requesting physician: Reta Silva Narrative: pt ijs a 62 year old female who slammed her finger in a closet and developed a progressive wound and infection and who went to the ER with hand surgery last week. pt doing ok but recommedations for wound dressings. Review of Systems Review of Systems: Yes all other systems are reviewed and are negative PMFSH Past Medical History Medical History Hx of ectopic Family History Family history: reviewed and not pertinent Surgical History Surgical History Hx of foot surgery Social History Social History Household Members: None Housing: House Do you presently have visiting nurse or other home services: No Patient Tobacco Use Status: Never used Tobacco Smoked in Last 30 Days: No e-Cigarette/Vaping Use: Never Used Use of substances other than those prescribed or required for medical reasons: No Currently Displaying Signs/Symptoms of Drug Intoxication Withdrawal: No Any prior treatment program specific to substance use: No Have you been hit, kicked, punched, or otherwise hurt by someone within the past year? If so, by whom?: No Do you feel safe in your current relationship?: Yes Is there a partner from a previous relationship who is making you feel unsafe now?: No Are you made to feel afraid or neglected: No Are you DNR?: No Advance Directives: No Advance Directives Information Provided: No Do you have thoughts of harming others: None Do you have a plan to hurt others: No Plan Recently lost weight without trying: No Eating poorly because of decreased appetite: No Nutrition Risks: No Nutritional Risk Patient : No : No Poor oral hygiene: No service: No Current occupational status: employed Meds Allergies Allergy/AdvReac Type Severity Reaction Status Date / Time No Known Allergies Allergy Unverified 07/07/20 16:32 Active Medications: Current Medications Acetaminophen (Acetaminophen 325 Mg Tablet) 650 mg PO Q6H PRN PRN Reason: Pain, Mild (Pain Scale 1-3) Last Admin: 02/22/23 12:33 Dose: 650 mg Bupropion HCl (Bupropion Hcl Xl 300 Mg Tab.Er.24h) 300 mg PO DAILY [facility] Last Admin: 02/24/23 07:20 Dose: 300 mg Docusate Sodium (Docusate Sodium 100 Mg Capsule) 100 mg PO BEDTIME [facility] Last Admin: 02/24/23 20:56 Dose: 100 mg Escitalopram Oxalate (Escitalopram Oxalate 20 Mg Tablet) 20 mg PO BEDTIME [facility] Last Admin: 02/24/23 20:56 Dose: 20 mg Hydromorphone HCl (Hydromorphone Hcl 0.5 Mg/0.5 Ml Syringe) 0.5 mg IVPUSH Q4H PRN; Protocol PRN Reason: Pain, Severe (Pain Scale 7-10) Last Admin: 02/24/23 21:35 Dose: 0.5 mg Cefazolin Sodium/Dextrose (Ancef) 2 gm in 50 mls @ 100 mls/hr IV Q8H [facility] Last Infusion: 02/24/23 21:25 Dose: Infused Clindamycin Phosphate (Cleocin) 600 mg in 50 mls @ 100 mls/hr IV Q8H [facility] Last Admin: 02/24/23 22:28 Dose: 100 mls/hr Lorazepam (Lorazepam 0.5 Mg Tablet) 0.5 mg PO DAILY PRN PRN Reason: anxiety Last Admin: 02/24/23 21:10 Dose: 0.5 mg Omeprazole (Omeprazole 20 Mg Capsule.Dr) 20 mg PO DAILY@0630 [facility] Last Admin: 02/24/23 05:30 Dose: 20 mg Ondansetron HCl (Ondansetron Hcl 4 Mg/2 Ml Vial) 4 mg IVPUSH Q8H PRN PRN Reason: Nausea and Vomiting Oxycodone HCl (Oxycodone Hcl Immed Release 5 Mg Tablet) 5 mg PO Q6H PRN PRN Reason: Pain, Moderate(Pain Scale 4-6) Last Admin: 02/24/23 19:32 Dose: 5 mg Pharmacy Consult (Consult Rx Perform Med Rec) 1 each MISCELLANE ONCE PRN PRN Reason: Consult order Polyethylene Glycol (Polyethylene Glycol 3350 17 Gm Powd.Pack) 17 gm PO DAILY PRN PRN Reason: Constipation Primidone (Primidone 50 Mg Tablet) 100 mg PO DAILY [facility] Last Admin: 02/24/23 07:20 Dose: 100 mg Senna (Sennosides 8.6 Mg Tablet) 8.6 mg PO DAILY [facility] Last Admin: 02/24/23 07:20 Dose: 8.6 mg Sodium Chloride (0.9 % Sodium Chloride Flush 3 Ml Syringe) 3 ml IVFLUSH QSHIFT [facility] Last Admin: 02/24/23 20:56 Dose: 3 ml Trazodone HCl (Trazodone Hcl 100 Mg Tablet) 100 mg PO BEDTIME PRN PRN Reason: insomnia Last Admin: 02/23/23 21:10 Dose: 100 mg Home Medications Medication Instructions Recorded Confirmed Last Taken Type bupropion HCl 300 mg 24 hr tablet, 300 mg PO DAILY 02/20/23 02/20/23 02/20/23 History extended release escitalopram oxalate 20 mg tablet 20 mg PO BEDTIME 02/20/23 02/20/23 02/19/23 History ibuprofen 800 mg tablet 800 mg PO BID PRN Pain 02/20/23 02/20/23 02/20/23 History lorazepam 0.5 mg tablet 0.5 mg PO DAILY PRN anxiety 02/20/23 02/20/23 02/17/23 History omeprazole 20 mg capsule,delayed 20 mg PO DAILY 02/20/23 02/20/23 02/17/23 History release primidone 50 mg tablet 100 mg PO DAILY 02/20/23 02/20/23 02/20/23 History trazodone 100 mg tablet 100 mg PO BEDTIME PRN insomnia 02/20/23 02/20/23 02/19/23 History Physical Exam Vital Signs: Vital Signs: Last Vital Signs Temp 97.3 F 02/24/23 19:30 Pulse 93 02/24/23 19:30 Resp 20 02/24/23 19:30 BP 127/60 02/24/23 19:30 Pulse Ox 96 02/24/23 19:30 O2 Del Method Room Air 02/24/23 19:30 O2 Flow Rate 95 02/24/23 04:00 BMI result Body Mass Index 22.3 Skin: Other: left hand ring finger - dressings taken down and wound cleaned with saline - palmar aspect with mostly skin closure with sutures but looking little pale superficial skin - no obvious necrosis the dorsal finder has raw red good tissue full to partial skin missing able to bend joint but sore Results Labs 02/23/23 05:45 02/24/23 05:29 Labs: BMP 02/24/23 05:29 Creatinine 0.59 All other labs normal. Assessment and Plan (1) Tenosynovitis: Status: Acute Plan pt with tenosynovitis of left ring finger and s/p debridement and carpal tunnel release - looks good recommend cont wth iv antibx cont with daily dressing changes - can put wound dress collagen gel and cover with soft gauze and roll gently keep dorsal finger area moist hand surgery to follow Time Spent With Patient Time: Total time managing care of this patient today ____ minutes. Procedures Date of Service Date of Service: 02/24/23
[2023-02-25 03:45] VITALS: BP 112/62; PULSE 67; RESP 18; TEMP 36.4; O2SAT 97
[2023-02-25] MEDS: HYDROmorphone HCl 0.5 MG/0.5 ML SYRINGE IVPUSH ×4 (04:22→20:00)
[2023-02-25] MEDS: ceFAZolin Sodium/Dextrose,Iso 2 GM/50 ML PIGGYBACK IV ×3 (04:56→20:57)
[2023-02-25] MEDS: Omeprazole 20 MG CAPSULE.DR PO (05:58)
[2023-02-25] MEDS: Clindamycin Phosphate/D5W 600 MG/50 ML PIGGYBACK 100 MG IV ×3 (05:58→22:28)
[2023-02-25 06:54] LABS: Hematocrit 30.3 % (37.0-47.0); Mean Platelet Volume 8.8 fL (9.4-12.3); Platelet Count 383 X10*3/uL (160-400); Red Blood Count 3.03 X10*6/uL (4.20-5.50); Red Cell Distribution Width 12.8 % (11.0-16.0); White Blood Count 8.5 X10*3/uL (4.8-10.8)
[2023-02-25] MEDS: Sennosides 8.6 MG TABLET PO (07:52)
[2023-02-25] MEDS: Primidone 50 MG TABLET 100 MG PO (07:52)
[2023-02-25] MEDS: buPROPion HCl XL 300 MG TAB.ER.24H PO (07:52)
[2023-02-25] MEDS: 0.9 % Sodium Chloride Flush 3 ML SYRINGE IVFLUSH ×3 (07:53→20:09)
[2023-02-25 08:00] VITALS: BP 125/64; PULSE 70; RESP 18; TEMP 36.3; O2SAT 96
--- NOTE | 2023-02-25 11:55 | MHC.CM.PN ---
PER CONVERSATION WITH PATIENT ABOUT HER DC NEEDS, REFERRAL PLACED TO [facility]. CASE MANAGEMENT FOLLOWING
--- NOTE | 2023-02-25 12:30 | P.PNIM_ITS ---
Subjective Subjective Date of Service: 02/25/23 Interval History: seen and examined this morning follow up for left hand infection still reporting hand pain, but overall feels improvement no fever, chills Review of Systems Review of Systems: Yes all other systems are reviewed and are negative Constitutional Constitutional: Denies chills and Denies fever(s) Cardiovascular Cardiovascular: Denies chest pain, Denies palpitations and Denies dyspnea Respiratory Respiratory: Denies cough and Denies dyspnea Gastrointestinal Gastrointestinal: Denies abdominal pain, Denies constipation, Denies nausea and Denies vomiting Endocrine Endocrine: Denies palpitations Physical Exam Vital Signs: Vital Signs: Last Vital Signs Temp 97.4 F 02/25/23 08:00 Pulse 70 02/25/23 08:00 Resp 18 02/25/23 08:00 BP 125/64 02/25/23 08:00 Pulse Ox 96 02/25/23 08:00 O2 Del Method Room Air 02/25/23 08:00 O2 Flow Rate 95 02/24/23 04:00 BMI result Body Mass Index 22.3 Appearing in no acute distress lung sounds are clear to auscultation heart regular rate rhythm, clear S1, S2 positive bowel sounds, abdomen is soft, nontender neuro patient is alert x3, no focal deficits Left hand dressing intact Objective Data Active Medications Acetaminophen (Acetaminophen 325 Mg Tablet) 650 mg PO Q6H PRN PRN Reason: Pain, Mild (Pain Scale 1-3) Last Admin: 02/22/23 12:33 Dose: 650 mg Documented By: JENNIE Bupropion HCl (Bupropion Hcl Xl 300 Mg Tab.Er.24h) 300 mg PO DAILY [facility] Last Admin: 02/25/23 07:52 Dose: 300 mg Documented By: ALINE Docusate Sodium (Docusate Sodium 100 Mg Capsule) 100 mg PO BEDTIME [facility] Last Admin: 02/24/23 20:56 Dose: 100 mg Documented By: CLEMENTE Escitalopram Oxalate (Escitalopram Oxalate 20 Mg Tablet) 20 mg PO BEDTIME [facility] Last Admin: 02/24/23 20:56 Dose: 20 mg Documented By: CLEMENTE Hydromorphone HCl (Hydromorphone Hcl 0.5 Mg/0.5 Ml Syringe) 0.5 mg IVPUSH Q4H PRN; Protocol PRN Reason: Pain, Severe (Pain Scale 7-10) Last Admin: 02/25/23 09:15 Dose: 0.5 mg Documented By: ALINE Cefazolin Sodium/Dextrose (Ancef) 2 gm in 50 mls @ 100 mls/hr IV Q8H [facility] Last Infusion: 02/25/23 05:34 Dose: 0 mls/hr Documented By: CLEMENTE Clindamycin Phosphate (Cleocin) 600 mg in 50 mls @ 100 mls/hr IV Q8H [facility] Last Infusion: 02/25/23 06:30 Dose: 0 mls/hr Documented By: CLEMENTE Lorazepam (Lorazepam 0.5 Mg Tablet) 0.5 mg PO DAILY PRN PRN Reason: anxiety Last Admin: 02/24/23 21:10 Dose: 0.5 mg Documented By: CLEMENTE Omeprazole (Omeprazole 20 Mg Capsule.Dr) 20 mg PO DAILY@0630 [facility] Last Admin: 02/25/23 05:58 Dose: 20 mg Documented By: CLEMENTE Ondansetron HCl (Ondansetron Hcl 4 Mg/2 Ml Vial) 4 mg IVPUSH Q8H PRN PRN Reason: Nausea and Vomiting Oxycodone HCl (Oxycodone Hcl Immed Release 5 Mg Tablet) 5 mg PO Q6H PRN PRN Reason: Pain, Moderate(Pain Scale 4-6) Last Admin: 02/24/23 19:32 Dose: 5 mg Documented By: CLEMENTE Pharmacy Consult (Consult Rx Perform Med Rec) 1 each MISCELLANE ONCE PRN PRN Reason: Consult order Polyethylene Glycol (Polyethylene Glycol 3350 17 Gm Powd.Pack) 17 gm PO DAILY PRN PRN Reason: Constipation Primidone (Primidone 50 Mg Tablet) 100 mg PO DAILY [facility] Last Admin: 02/25/23 07:52 Dose: 100 mg Documented By: ALINE Senna (Sennosides 8.6 Mg Tablet) 8.6 mg PO DAILY [facility] Last Admin: 02/25/23 07:52 Dose: 8.6 mg Documented By: ALINE Sodium Chloride (0.9 % Sodium Chloride Flush 3 Ml Syringe) 3 ml IVFLUSH QSHIFT [facility] Last Admin: 02/25/23 07:53 Dose: 3 ml Documented By: ALINE Trazodone HCl (Trazodone Hcl 100 Mg Tablet) 100 mg PO BEDTIME PRN PRN Reason: insomnia Last Admin: 02/23/23 21:10 Dose: 100 mg Documented By: BAKARI Labs 02/25/23 05:57 02/24/23 05:29 Labs: Laboratory Results - last 24 hr 02/25/23 05:57 MCV 100.0 H MCH 33.0 MCHC 33.0 RDW 12.8 Plt Count 383 MPV 8.8 L Absolute Nucleated RBC 0.000 Nucleated RBC % (auto) 0.0 Assessment and Plan (1) Tenosynovitis: Status: Acute (2) Abscess of finger, left: Status: Acute Plan Pt is a 62-year-old female with PMH significant for anxiety, essentaial tremor, and anxiety?who presents to the ED with?increasing pain and swelling after closing her left 4th finger in a door on 02/17/2023 Left hand cellulitis with abscess/4th finger flexor tensosynovitis. wbc trending down s/p left ring finger I&D of flexor tendon sheath and left carpal tunnel release and I&D of the carpal tunnel with ortho 02/21 wound culture growing strep pyogenes initially treated with IV Vanco and cefazolin, vanco stopped, clinda added Blood cultures negative to date ID following - augmentin for 7 days on d/c dressing changes per ortho rec PT/OT Hyponatremia resolved essential tremor Continue primidone Mood Continue home wellbutrin, lexapro Full Code Attending:?Dr. Cordova DVT Prophylaxis: Pneumatic boots/early ambulation Patient requires ongoing inpatient hospitalization for management of left hand cellulitis/abscess with need for IV antibiotics, dialy wound care, close evaluation of wound and possible repeat I&D in OR early next week Time Spent With Patient Time: Total time managing care of this patient today ____ minutes. Quality Stroke Does the patient have a stroke diagnosis?: No VTE Prior VTE?: No VTE Risk Level:: Medical - moderate - high VTE Device Contraindication: N/A - Device Ordered VTE Drug Contraindication: Treatment Not Indicated
[2023-02-25] MEDS: oxyCODONE HCl Immed Release 5 MG TABLET PO ×2 (13:54→22:28)
[2023-02-25 15:20] VITALS: BP 150/87; PULSE 70; RESP 18; TEMP 37.2; O2SAT 97
[2023-02-25] MEDS: Fluconazole 150 MG TABLET PO (16:48)
[2023-02-25 19:34] VITALS: BP 130/63; PULSE 65; RESP 15; TEMP 36.7; O2SAT 98
[2023-02-25] MEDS: Docusate Sodium 100 MG CAPSULE PO (20:08)
[2023-02-25] MEDS: Escitalopram Oxalate 20 MG TABLET PO (20:08)
[2023-02-25] MEDS: LORazepam 0.5 MG TABLET PO (20:09)
[2023-02-26] MEDS: HYDROmorphone HCl 0.5 MG/0.5 ML SYRINGE IVPUSH ×2 (03:49→09:39)
[2023-02-26 04:00] VITALS: BP 107/54; PULSE 66; RESP 16; TEMP 36.1; O2SAT 96
[2023-02-26] MEDS: ceFAZolin Sodium/Dextrose,Iso 2 GM/50 ML PIGGYBACK IV (05:35)
[2023-02-26] MEDS: Omeprazole 20 MG CAPSULE.DR PO (05:35)
[2023-02-26] MEDS: Clindamycin Phosphate/D5W 600 MG/50 ML PIGGYBACK 100 MG IV (06:11)
[2023-02-26 07:42] VITALS: BP 104/58; PULSE 69; RESP 18; TEMP 36; O2SAT 96
[2023-02-26] MEDS: buPROPion HCl XL 300 MG TAB.ER.24H PO (07:42)
[2023-02-26] MEDS: Primidone 50 MG TABLET 100 MG PO (07:42)
[2023-02-26] MEDS: Sennosides 8.6 MG TABLET PO (07:42)
[2023-02-26] MEDS: 0.9 % Sodium Chloride Flush 3 ML SYRINGE IVFLUSH (07:45)
--- NOTE | 2023-02-26 09:04 | PM.DS ---
DS: Providers Provider Date of Service: 02/26/23 Date of admission: 02/20/23 22:22 Primary care physician: Rodriguez White MD Consults: 02/20/23 20:52 Consult to Orthopedics Stat Consulting Provider: [facility] [place] [place] Orthopedic Surgeons Reason for consultation: Left hand cellulitis, 4th finger abscess, facial cellulitis Has provider been notified: Yes 02/20/23 22:21 Consult to Orthopedics Routine Consulting Provider: [facility] [place] [place] Orthopedic Surgeons Reason for consultation: Abscess of 4th digit of left hand 02/22/23 14:17 Consult to Infectious Diseases Routine Consulting Provider: [facility] [place] [place] Infectious Disease Reason for consultation: left hand wound, tenosynovitis; strep pyogenes Has provider been notified: Yes 02/23/23 20:40 Consult to Wound Care Routine Consulting Provider: [facility] [place] [place] Wound Care Management Reason for consultation: Left ring finger I&D superficial blister, carpal tunnel, tendon sheath Has provider been notified: No DS: Diagnosis Discharge Diagnosis (1) Tenosynovitis: Status: Acute (2) Abscess of finger, left: Status: Acute DS: Summary Hospital Course Hospital Course: HP as per admitting provider Pt is a 62-year-old female with PMH significant for anxiety, benign tremors, and anxiety?who presents to the ED with?after closing her left 4th finger in a door 3 days prior and 02/17/2023.? Patient says that she closed her fingers in a closet door and felt a little pinch that bled just a little bit. Pt did not have any reduced ROM or reduction in her activities that night or throughout the next day.? However yesterday patient says her fingers started to throb and she experienced some fever and chills.? This morning when she awoke her her finger and hand had blown up and she noticed a spreading redness over both sides of her hand.? Patient went to urgent care who then suggested she come to the hospital for further evaluation.? Patient denies nausea, vomiting, abdominal pain.? No chest pain/pressure, palpitations.? No shortness of breath.? ED provider contacted Orthopedics who wished patient to be NPO after midnight and will evaluate her in the morning. Patient also complains of a red rash and blisters that have formed over her nose and cheeks since Saturday 1 day prior to her finger incident.? Patient states she has a long history of sun bathing but denies having a similar episode 4.? States the rash on her face is looking better today than it was yesterday.?In the ED patient was afebrile and hemodynamically stable. Labs were significant for leukocytosis of 20.1, mildly elevated ESR of 39, sodium of 132, C-reactive protein 17.63. Left hand x-ray showed moderate soft tissue swelling mid phalanx 4th digit without underlying fracture or dislocation. Pt was treated with cefazolin, vanco, morphine, IV fluid. Pt will be admitted to the hospital for treatment and further evaluation of left hand cellulitis and abscess with likely surgical intervention tomorrow by Orthopedics . Left hand cellulitis with abscess/4th finger flexor tensosynovitis. wbc trending down. s/p left ring finger I&D of flexor tendon sheath and left carpal tunnel release and I&D of the carpal tunnel with ortho 02/21. wound culture growing strep pyogenes. initially treated with IV Vanco and cefazolin, vanco stopped, clinda added. Blood cultures negative to date. Augmentin for 7 days. OT outpatient Hyponatremia. resolved essential tremor. Continue primidone Mood. Continue home wellbutrin, lexapro Time Spent with Patient Time attestation: Total time managing care of this patient today ____ minutes. Discharge coordination time: Greater than 30 minutes Quality: Safe Use of Opioids Does Pt have an Active Cancer Diagnosis on the Problem List?: No Quality: Stroke Does the patient have a stroke diagnosis?: No Physical Exam Vital Signs: Vital Signs: Last Vital Signs Temp 96.8 F 02/26/23 07:42 Pulse 69 02/26/23 07:42 Resp 18 02/26/23 07:42 BP 104/58 L 02/26/23 07:42 Pulse Ox 96 02/26/23 07:42 O2 Del Method Room Air 02/26/23 07:42 O2 Flow Rate 95 02/24/23 04:00 BMI result Body Mass Index 22.3 Appearing in no acute distress head is normocephalic atraumatic eyes pupils are PERRLA sclera is anicteric mouth throat mucous membranes are intact and moist neck is supple no lymphadenopathy, no JVD noted lung sounds are clear to auscultation heart regular rate rhythm, clear S1, S2 positive bowel sounds, abdomen is soft, nontender neuro patient is alert x3, no focal deficits Discharge Plan Discharge Anticipated Discharge Date/Time: 02/26/23 08:55 Patient Disposition: Home Health Service Discharge Diagnosis: Left hand cellulitis with abscess/4th finger flexor tensosynovitis Hyponatremia Referrals: Rodriguez White MD [Primary Care Provider] - 1 Week [facility],MD Mohini [Physician] - 1 Week Barbara Garcia MD [Physician] - 1 Week Discharge Medications: New oxycodone 5 mg Tablet 5 mg PO Q6H PRN (Reason: Pain, Moderate(Pain Scale 4-6)) Qty: 16 0RF Rx Instructions: Partial Fill upon patient request. amoxicillin-pot clavulanate 875-125 mg tablet 1 tab PO BID Qty: 14 0RF Continued primidone 50 mg tablet 100 mg PO DAILY ibuprofen 800 mg tablet 800 mg PO BID PRN (Reason: Pain) lorazepam 0.5 mg tablet 0.5 mg PO DAILY PRN (Reason: anxiety) trazodone 100 mg tablet 100 mg PO BEDTIME PRN (Reason: insomnia) omeprazole 20 mg capsule,delayed release(DR/EC) 20 mg PO DAILY escitalopram oxalate 20 mg tablet 20 mg PO BEDTIME bupropion HCl 300 mg tablet extended release 24 hr 300 mg PO DAILY Discharge Orders: Discharge Order (Routine); Ordered 02/26/23 Ordered By: Fabiola Newby Diet: Advance to usual diet Activity on Discharge: As tolerated Stand Alone Forms: Patient Portal Discharge page, Work/School Release Care Plan Goals: Cont with daily dressing changes - -can put wound dress collagen gel and cover with soft gauze and roll gently -keep dorsal finger area moist Follow up at the wound care center Health Concerns: Left hand cellulitis with abscess/4th finger flexor tensosynovitis Hyponatremia Plan of Treatment: Follow up with hand surgeon Take all medications as prescribed Assessment: See discharge summary
--- NOTE | 2023-02-26 10:31 | MHC.CM.PN ---
[facility] DOES NOT ACCEPT PATIENT'S INSURANCE. CASE MANAGEMENT ATTEMPTING TO SECURE SERVICES. RN AWARE
--- NOTE | 2023-02-26 11:50 | MHC.CM.PN ---
Addendum entered by Gia Doherty RN 02/26/23 12:24: PLAN: PATIENT HAS NO OFFERING [facility] SERVICES PATIENT IS AWARE THAT SHE NEEDS DAILY DRESSING CHANGES AND THE RN IS GIVING HER THESE SUPPLIES. PATIENT REPORTS THAT HER FRIENDS WILL ASSIST PATIENT INFORMED THAT [facility] WILL CONTACT HER FOR AN APPOINTMENT. PATIENT ALSO INFORMED THAT T/W REACHED OUT TO [facility] TO SEND A REFERRAL TO [facility] FOR OCCUPATIONAL THERAPY SERVICES. Addendum entered by Gia Doherty RN 02/26/23 11:53: [facility] JUST DECLINED SERVICES, STATING THERE IS NO AVAILABILITY Original Note: CLINICAL INFO FAXED TO [facility] AT [facility] @ [phone] [facility] WILL REVIEW AND CONTACT PATIENT HERSELF TO ARRANGE FOR AN APPOINTMENT REG[facility] SELF HAS RESPONDED WITH AN OFFER OF SERVICES. PATIENT REPORTS THAT FRIEND WILL MANAGE HER DRESSING CHANGES FOR HER PATIENT AWARE THAT CURRENT NEED IS FOR DAILY CHANGES. CASE MANAGEMENT TO UPDATE THIS NOTE WITH FINAL PLAN
== END 2023-02-26 13:13 | disposition home health service (06) | DRG 988 ==
LOC: HO.ED 22:37 → HO.EDOVER 22:38 → HO.S3 22:41
PROVIDERS: Orthopaedic Surgery; Physician Assistant Medical; Admitting Provider Student in an Organized Health Care Education/Training Program; Emergency Provider Emergency Medicine Emergency Medical Services; PCP Internal Medicine; Visit Provider Nurse Practitioner Acute Care
PROC: 01N50ZZ Release Median Nerve, Open Approach (ICD-10-PCS; principal; 2023-02-21 11:00)
DX: L02.512 Cutaneous abscess of left hand (principal); E87.1 Hypo-osmolality and hyponatremia; L03.114 Cellulitis of left upper limb; M65.9 Synovitis and tenosynovitis, unspecified; B95.0 Streptococcus, group A, as the cause of diseases classified elsewhere; G25.0 Essential tremor; F41.9 Anxiety disorder, unspecified; Z20.822 Contact with and (suspected) exposure to COVID-19; Z79.899 Other long term (current) drug therapy
CPT/HCPCS: 36415; 73130; 80048; 80053; 80202; 82565; 83605; 85025; 85027; 85610; 85652; 85730; 86140; 87040; 87070; 87147; 87205; 87635; 93005; 97161; 97165; 99285; J0131; J0690; J1100; J1170; J1885; J2270; J2405; J2795; J3010; J3370; J3371

== ENCOUNTER 2023-03-01 09:58 | Outpatient (RCR) | payer OTHER, SELFPAY | END 2023-03-09 08:00 | disposition home or self-care (01) | LOC: HO.WCC 09:58 | PROVIDERS: PCP Internal Medicine; Visit Provider Physician Assistant | DX: S61.215D Laceration without foreign body of left ring finger without damage to nail, subsequent encounter (principal); W23.0XXD Caught, crushed, jammed, or pinched between moving objects, subsequent encounter | CPT/HCPCS: 99212; 99213 ==

== ENCOUNTER → 2023-03-06 13:50 | Outpatient (BNVA) | payer OTHER, SELFPAY | PROVIDERS: PCP Internal Medicine; Visit Provider Orthopaedic Surgery ==

== ENCOUNTER → 2023-03-27 11:15 | Outpatient (BNVA) | payer OTHER, SELFPAY | PROVIDERS: PCP Internal Medicine; Visit Provider Orthopaedic Surgery ==

== ENCOUNTER 2023-04-05 08:46 | Outpatient (REF) | payer OTHER, SELFPAY ==
[2023-04-05 11:28] LABS: Hematocrit 39.8 % (37.0-47.0); Hemoglobin 13.3 g/dl (12.0-16.0); Mean Corpuscular HGB Conc 33.4 g/dl (31.0-35.0); Mean Corpuscular Hemoglobin 32.8 pg (27.0-33.0); Platelet Count 364 X10*3/uL (160-400); Red Blood Count 4.06 X10*6/uL (4.20-5.50); Red Cell Distribution Width 12.4 % (11.0-16.0); White Blood Count 5.6 X10*3/uL (4.8-10.8)
[2023-04-05 13:33] LABS: Alanine Aminotransferase 18 U/L (0-31); Albumin Level 4.6 g/dL (3.5-5.0); Alkaline Phosphatase 50 U/L (39-117); Anion Gap 12 (12-20); Aspartate Amino Transferase 19 U/L (5-31); Bilirubin Total 0.4 mg/dL (0.0-1.0); Blood Urea Nitrogen 15 mg/dL (9-16); Calcium 9.9 mg/dL (8.4-10.2); Carbon Dioxide 30 mmol/L (22-29); Chloride 101 mmol/L (96-108); Cholesterol 266 mg/dL; Estimated Glomerular Filt Rate > 60; Glucose Random 85 mg/dL (60-115); HDL Cholesterol 72 mg/dL; LDL Cholesterol Calculated 181 mg/dl; Potassium 4.2 mmol/L (3.3-5.1); Sodium 139 mmol/L (135-145); Total Protein 7.6 g/dL (6.5-8.0); Triglycerides 68 mg/dL
== END 2023-04-05 08:47 | disposition home or self-care (01) ==
LOC: HO.HMGCLDS 08:46
PROVIDERS: PCP Internal Medicine; Visit Provider Registered Nurse
DX: Z00.00 Encounter for general adult medical examination without abnormal findings (principal); E78.00 Pure hypercholesterolemia, unspecified; E55.9 Vitamin D deficiency, unspecified
CPT/HCPCS: 36415; 80053; 80061; 82306; 85027

== ENCOUNTER 2023-05-06 10:30 | Outpatient (RCR) | payer OTHER, SELFPAY ==
--- NOTE | 2023-03-27 11:37 | MHC.OT.OP ---
[address] [phone] F: [phone] Occupational Therapy Progress Note Patient Name: Deborah Tom Diagnosis: Date of Surgery: 02/21/23 Date of Evaluation: 03/21/23 Treatments to Date: 3 Cancellations to Date: 0 No Shows to Date: 0 Subjective: Pt reports improving with HEP Pain Score: 5 Pain Location: left ring finger Objective Measures: PIP jt 0/60 deg pre rx DIP jt 20 deg pre rx Status: Progressing Assessment: Good improvement in scar sensitivity with tolerance to pressure from light to moderate pressure. improving ROM Short Term Goals: Tolerate mild to moderate desensitization x 7 min to right ring finger Demonstrate indep with HEP PIP jt flexion to >75 deg Full left hand use with grasping and carrying light objects Radiation Oncology Therapist Goals: Tolerate firm desensitization to ring finger Ring finger < 1 cm to DPC It Systems Administrator strength to > 20 lb Use of left hand with all bimanual tasks Quick DASH < 20 pts Frequency and Duration: The patient will be seen 2 x wk x 4 wks Treatment Plan: Therapeutic Exercise Therapeutic Activity Home Exercise Program Patient Education Desensitization/Sensory Re-ed Ultrasound Paraffin Joint Mobilization Soft Tissue Mobilization Splinting as needed Electronically Signed By: Chelsea Suarez Reviewed/agree with student documentation: Therapist:
--- NOTE | 2023-05-08 10:53 | MHC.OT.DC ---
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 Tendon adhesion and joint stiffness limiting digit flexion Pt will benefit from continued OT . Insurance denial for requested OT 2x wk x 3 wks. MD follow up on 05/15/23 Electronically Signed By: Chelsea Suarez Reviewed/agree with student documentation: N/A Therapist: Please Sign and return to therapist, thank you for your referral.
== END 2023-05-08 10:54 | disposition home or self-care (01) ==
LOC: HO.OT 10:30
PROVIDERS: PCP Internal Medicine; Visit Provider Orthopaedic Surgery
DX: M25.642 Stiffness of left hand, not elsewhere classified (principal); M65.9 Synovitis and tenosynovitis, unspecified; L02.512 Cutaneous abscess of left hand
CPT/HCPCS: 97035; 97110; 97140; 97165

== ENCOUNTER 2023-05-15 12:20 | Outpatient (AMB) | payer OTHER, SELFPAY ==
--- NOTE | 2023-05-15 12:35 | MHC.OFFVIS ---
Intake Vital Signs 05/15/23 12:44 Height 5 ft 2 in Weight 115 lb BMI 21.0 Intake Visit Reasons: Postop-F/U LT 4th digit I&D 02/21/23 Intake Note: Deborah Campbell 62 yr old female presents today for her S/P left ring finger I&D of flexor tenosynovitis, I&D of the carpal tunnel & carpal tunnel release DOS: 02/21/[address] Garcia. State she still gets some soreness in the left ring finger A1 honorio area. Patient states she is improving with her ROM. Her insurance has denied more O.T sessions. Allergies No Known Allergies Allergy (Unverified 05/15/23 12:44) HPI Postop-F/U LT 4th digit I&D 02/21/23 HPI Details Deborah is a 62 year old right hand dominant woman, who works as a cook in a school kitchen, presenting S/P left ring finger I&D of flexor tenosynovitis, I&D of the carpal tunnel & carpal tunnel release, DOS: 02/21/2023. She has not been working as her work is during the school season. She finished up OT and has been doing her exercises at home. She sometimes gets a throbbing sensation over the A1 honorio area of her ring finger. She says this mostly occurs at night She says her insurance company has denied covering more OT sessions. [facility] Medical History Hx of ectopic Surgical History Hx of foot surgery Social History Household Members: None Housing: House Do you presently have visiting nurse or other home services: No Patient Tobacco Use Status: Never used Tobacco e-Cigarette/Vaping Use: Never Used service: No Current occupational status: employed Review of Systems Const All systems reviewed & are unremarkable except as noted in HPI and below Physical Exam Vital Signs: BMI result Body Mass Index 21.0 Const General: no acute distress and alert Orientation/consciousness: patient oriented x3 Neuro General: patient oriented x3 Extrem Other: The patient was alert oriented and in no acute distress The wounds are well healed with no erythema drainage She can fully extend her fingers She can actively bring her ring fingertip to ~1.5cm from her palm, and passively down to her palm She can demonstrate FDP tendon function Some tenderness along the incision sites Sensation is intact Cap refill is brisk Psych Appearance: grossly normal Affect: normal affect Attitude: cooperative Assessment & Plan Assessment & Plan (1) Tenosynovitis: Code(s): M65.9 - Synovitis and tenosynovitis, unspecified (2) Stiffness of finger joint: Code(s): M25.649 - Stiffness of unspecified hand, not elsewhere classified (3) Abscess of finger, left: Code(s): L02.512 - Cutaneous abscess of left hand Plan Assessment and plan: 1. Left ring finger flexor tenosynovitis 2. Left hand infection S/P flexor tenosynovectomy and I&D of the left ring finger and hand including a carpal tunnel release and I&D of the carpal tunnel. DOS 02/21/2023 She appears to be doing well postoperatively. She has improved her ROM with OT hand therapy and at-home exercises I recommend she continue to work on at home on her ROM and tendon gliding She should massage about her finger to work on desensitization She should begin to use her hand for normal daily activities to improve her function She can now follow up prn Scribed for Barbara Garcia MD by Troy Dias, medical liaison, on 05/15/23 at [ ], EST. Coding Level of Care Code Global (81544) Diagnoses Tenosynovitis M65.9 Stiffness of finger joint M25.649 Abscess of finger, left L02.512
[2023-05-15 12:44] VITALS: BMI 21.0
== END 2023-05-15 13:16 | disposition home or self-care (01) ==
PROVIDERS: PCP Internal Medicine; Visit Provider Orthopaedic Surgery
DX: M65.9 Synovitis and tenosynovitis, unspecified (principal); M25.649 Stiffness of unspecified hand, not elsewhere classified; L02.512 Cutaneous abscess of left hand
CPT/HCPCS: 99024

== ENCOUNTER → 2023-05-15 12:20 | Outpatient (BNVA) | payer OTHER, SELFPAY | PROVIDERS: PCP Internal Medicine; Visit Provider Orthopaedic Surgery ==

== ENCOUNTER 2023-12-31 15:40 | Outpatient (AMB) | payer OTHER, SELFPAY ==
--- NOTE | 2023-12-31 16:06 | MHC.OFFVIS ---
Intake Vital Signs 12/31/23 16:10 Height 5 ft 2 in Weight 115 lb BMI 21.0 Intake Visit Reasons: ov- left wrist pain Intake Note: Deborah Campbell is a 62 year old right hand dominant female who works in the kitchen at [employer] presents today for her S/P left ring finger I&D of flexor tenosynovitis, I&D of the carpal tunnel & carpal tunnel release DOS: 02/21/[address] Garcia. Patient reports that for the last 3-4 months she has had an increase of pain, weakness and discomfort. She is feeling pain at the base of the thumb. She has a small tender bump in the palm that has been present for about 3 months as well. Denies numbness and tingling Allergies No Known Allergies Allergy (Unverified 12/31/23 16:10) HPI ov- left wrist pain HPI Details Deborah is a 63 year old right hand dominant woman, who works as a cook in a school kitchen, presenting with complaints of left wrist & thumb pain. She has a hx of left ring finger I&D of flexor tenosynovitis, I&D of the carpal tunnel & carpal tunnel release, DOS: 02/21/2023. She complains of pain at the base of her thumb & in her wrist, along with weakness. She says her pain has been present for ~4 months now, and she often has to massage her wrist to help her pain. She says she has difficulties with daily activities and activities at work. She says she has pain when putting her bra on, and she cannot carry a coffee cup or a tray at work with her left hand without support. She also complains of a lump in her left palm, at the base of her ring finger. [facility] Medical History Hx of ectopic Surgical History Hx of foot surgery Social History Household Members: None Housing: House Do you presently have visiting nurse or other home services: No Comment: ed overflow Patient Tobacco Use Status: Never used Tobacco e-Cigarette/Vaping Use: Never Used service: No Current occupational status: employed Review of Systems Const All systems reviewed & are unremarkable except as noted in HPI and below Physical Exam Vital Signs: BMI result Body Mass Index 21.0 Const General: no acute distress and alert Orientation/consciousness: patient oriented x3 Neuro General: patient oriented x3 Extrem Other: Evaluation of Left Upper Extremity: The patient is alert, oriented, and in no acute distress Neuro: Median, Ulnar, Radial nerves motor and sensory intact Vascular: Cap refill brisk ROM: She can make a fist and extend all her digits No locking or catching The skin of the left ring finger has healed beautifully. No longer has any swelling or tenderness. Full active range of motion of the digit. Mild tenderness over the A1 honorio area, no locking or catching. Just proximal to the A1 honorio, at the mid palmar crease, she has a Dupuytren's nodule that is rather tender. No cords or contracture. Most tender over the left STT joint, on the volar aspect of the wrist, and the distal aspect of the FCR tendon Less tender over the basal joint of the thumb No tenderness over the 1st dorsal compartment Negative Arjun test bilaterally No tenderness over the a1 honorio of the thumb Radiographs: 3 views of the left hand form 02/20/23 were reviewed by me today in clinic. They show some basal joint arthritis, with joint space narrowing, subchondral sclerosis, and osteophyte formation. She also has some narrowing of the STT joint, with some subchondral sclerosis.. Psych Appearance: grossly normal Affect: normal affect Attitude: cooperative Office Procedures Fracture Care Details: Injection Fracture Billing Code: Fracture Billing Code Assessment & Plan Assessment & Plan (1) Osteoarthritis of carpometacarpal joint of left thumb: Code(s): M18.12 - Unilateral primary osteoarthritis of first carpometacarpal joint, left hand (2) Dupuytren's disease of palm of left hand: Code(s): M72.0 - Palmar fascial fibromatosis [Dupuytren] (3) Arthritis of klaqrjax-uxcricfmd-cdqasqjoz joint of left hand: Code(s): M19.032 - Primary osteoarthritis, left wrist (4) Left wrist tendinitis: Code(s): M77.8 - Other enthesopathies, not elsewhere classified Plan Assessment and plan: 1. Left STT joint arthritis 2. Left FCR tendonitis, Distal aspect These are her most symptomatic complaints today. I educated her about this condition I discussed the importance of activity modification. We discussed treatment options. The patient would like to proceed with an injection I discussed activity modification, she should limit or avoid any heavy or repetitive pinching or gripping activities She was fitted for a comfort cool brace to wear with daily activity Injection #1 : The risks and benefits of a steroid injection including but not limited to risk of damage to blood vessels, nerve, tendon, infection, skin bleaching, persistent or worsening pain, and failure to improve symptoms were discussed with the patient and they wish to proceed with the steroid injection. Once consent was obtained the skin over the volar aspect of the Left STT joint and about the distal aspect of the FCR tendon was sterilely prepped. The joint was then injected with a combination of 1 mL of dexamethasone (4mg/ml) and 1% plain Lidocaine. The patient appears to have tolerated the procedure well and with no complications. She had good early relief before leaving clinic today. She knows that they may not have another steroid injection into this joint for least 4 months. 3. Left basal joint arthritis This is less bothersome today 4. Left Dupuytrens nodule In line with the ring finger at the mid-palmar crease No Dupuytrens cord, mildly tender today 5. Left ring finger flexor tenosynovitis 6. Left hand infection extending into the carpal tunnel S/P flexor tenosynovectomy and I&D of the left ring finger and hand including a carpal tunnel release and I&D of the carpal tunnel. DOS 02/21/2023 She has recovered nicely from this infection. Full active range of motion of the ring finger. Scribed for Barbara Garcia MD by Troy Dias, medical technologist hematology, on 12/31/23 at 4:30 PM, EST. Coding Level of Care Code Est Pt Level 3 (98365) Diagnoses Osteoarthritis of carpometacarpal joint of left thumb M18.12 Dupuytren's disease of palm of left hand M72.0 Arthritis of brvqfdod-lhyziyshx-njhdpzvbs joint of left hand M19.032 Left wrist tendinitis M77.8 CPT Codes Fracture Care - Fracture Billing Code: Fracture Billing Code ([id number])
[2023-12-31 16:10] VITALS: BMI 21.0
== END 2023-12-31 16:47 | disposition home or self-care (01) ==
PROVIDERS: PCP Internal Medicine; Visit Provider Orthopaedic Surgery
DX: M18.12 Unilateral primary osteoarthritis of first carpometacarpal joint, left hand (principal); M72.0 Palmar fascial fibromatosis [Dupuytren]; M19.032 Primary osteoarthritis, left wrist; M77.8 Other enthesopathies, not elsewhere classified
CPT/HCPCS: 20605; 99213

== ENCOUNTER → 2023-12-31 15:40 | Outpatient (BNVA) | payer OTHER, SELFPAY | PROVIDERS: PCP Internal Medicine; Visit Provider Orthopaedic Surgery | DX: M18.12 Unilateral primary osteoarthritis of first carpometacarpal joint, left hand (principal); M72.0 Palmar fascial fibromatosis [Dupuytren]; M19.032 Primary osteoarthritis, left wrist; M77.8 Other enthesopathies, not elsewhere classified | CPT/HCPCS: 20605; J1100 ==

== ENCOUNTER 2024-02-12 14:38 | Outpatient (REF) | payer OTHER, SELFPAY ==
[2024-02-12 16:11] LABS: Appearance Urine Clear; Color Urine Yellow; Glucose Urine UA Negative (Negative); Leukocyte Esterase Urine Moderate (2+) (Negative); Nitrite Urine Negative (Negative); PH 6.5 (5.0-9.0); Specific Gravity - Urine 1.025 (1.005-1.025); UMIC TRIGGER UACC YES; Urine Blood Small (1+) (Negative); Urine Ketones Negative (Negative); Urine Protein Negative (Neg-Trace)
[2024-02-12 16:14] LABS: Bacteria Urine 3+ (None Seen); Hyaline Casts Urine 0-2 /LPF (0-2); Squamous Epithelial Cell Urine 0-2 /HPF (0-2); UACC Culture Trigger YES; WBC Urine >50 /HPF (0-5)
== END 2024-02-12 14:39 | disposition home or self-care (01) ==
LOC: HO.HMGCLDS 14:38
PROVIDERS: PCP Internal Medicine; Visit Provider Registered Nurse
DX: N39.0 Urinary tract infection, site not specified (principal)
CPT/HCPCS: 81001; 87086; 87088; 87186

== ENCOUNTER 2024-03-13 14:56 | Outpatient (REF) | payer OTHER, SELFPAY | END 2024-03-13 14:57 | disposition home or self-care (01) | LOC: HO.MAMMO 14:56 | PROVIDERS: PCP Internal Medicine; Visit Provider Internal Medicine | DX: Z12.31 Encounter for screening mammogram for malignant neoplasm of breast (principal) | CPT/HCPCS: 77063; 77067 ==

== ENCOUNTER → 2024-03-13 15:00 | Outpatient (BNV) | payer OTHER, SELFPAY | PROVIDERS: PCP Internal Medicine; Visit Provider Radiology Diagnostic Radiology | DX: Z12.31 Encounter for screening mammogram for malignant neoplasm of breast (principal) | CPT/HCPCS: 77063; 77067 ==

== ENCOUNTER 2024-07-01 15:59 | Outpatient (REF) | payer OTHER, SELFPAY ==
[2024-07-01 16:19] LABS: MANUAL DIFF FLAG NO
[2024-07-01 17:05] LABS: Basophils Absolute Auto 0.1 X10*3/uL (0.0-0.2); Basophils Percent Auto 0.8 % (0-2); Eosinophils Absolute Auto 0.1 X10*3/uL (0.0-0.4); Eosinophils Percent Auto 1.3 % (0-4); Hematocrit 35.8 % (37.0-47.0); Hemoglobin 12.6 g/dl (12.0-16.0); Imm Gran Abs Auto 0.02 X10*3/uL (0.00-0.03); Imm Gran Pct Auto 0.3 % (0.0-0.4); Lymphocytes Absolute Auto 2.6 X10*3/uL (1.2-4.9); Lymphocytes Percent Auto 43.2 % (20-40); Mean Corpuscular HGB Conc 35.2 g/dl (31.0-35.0); Mean Corpuscular Hemoglobin 34.7 pg (27.0-33.0); Mean Corpuscular Volume 98.6 fL (80.0-98.0); Mean Platelet Volume 8.8 fL (9.4-12.3); Monocytes Absolute Auto 0.5 X10*3/uL (0.1-1.2); Monocytes Percent Auto 8.9 % (2-11); Neutrophils Absolute Auto 2.7 x10*3/uL (2.0-8.3); Neutrophils Percent Auto 45.5 % (45-73); Platelet Count 284 X10*3/uL (160-400); Red Blood Count 3.63 X10*6/uL (4.20-5.50); Red Cell Distribution Width 12.7 % (11.0-16.0); White Blood Count 5.9 X10*3/uL (4.8-10.8)
[2024-07-01 17:38] LABS: Anion Gap 8 (12-20); Blood Urea Nitrogen 13 mg/dL (9-16); Calcium 9.1 mg/dL (8.4-10.2); Carbon Dioxide 31 mmol/L (22-29); Chloride 101 mmol/L (96-108); Estimated Glomerular Filt Rate > 60; Glucose Random 81 mg/dL (60-115); Potassium 3.8 mmol/L (3.3-5.1); Sodium 136 mmol/L (135-145)
[2024-07-01 17:43] LABS: Erythrocyte Sedimentation Rate 2 MM/HR (0-20)
[2024-07-01 17:55] LABS: TSH reflex Free T4 0.89 uIU/mL (0.32-4.0)
[2024-07-02 18:18] LABS: Lyme Abs Screen <0.90 index
== END 2024-07-01 16:00 | disposition home or self-care (01) ==
LOC: HO.LAB 15:59
PROVIDERS: PCP Internal Medicine; Visit Provider Psychiatry & Neurology Neurology
DX: G25.0 Essential tremor (principal)
CPT/HCPCS: 36415; 80048; 84443; 85025; 85652; 86617; 86618

== ENCOUNTER 2025-07-28 14:16 | Outpatient (AMB) | payer OTHER, SELFPAY ==
--- NOTE | 2025-07-28 14:18 | A.OFFVIS_ITS ---
Intake Visit Reasons: 6m Allergies No Known Allergies Allergy (Unverified 07/28/25 14:25) Medication List - Last Reconciled 07/28/25 by Tish Moss CNP bupropion HCl XL 300 mg PO DAILY escitalopram oxalate 20 mg PO BEDTIME ibuprofen 800 mg PO BID PRN lorazepam 0.5 mg PO DAILY PRN omeprazole 20 mg PO DAILY primidone 100 mg PO BID tramadol 50 mg PO DAILY trazodone 100 mg PO BEDTIME PRN HPI Comments Details: She was doing okay. Tremors are well controlled with primidone. No medication side effects. Works in [employer]. Ongoing constant pain in left hand and pain in left foot, and possibly considering surgery for foot in near future. Had left hand surgery for an infection in 02/2023. Now has arthritis in hand. Has constant pain in the hand. Has benign essential tremors, depression, and lif elong history of anxiety disorder since childhood. PFSH Medical History Hx of ectopic Surgical History Hx of foot surgery Social History Household Members: None Housing: House Do you presently have visiting nurse or other home services: No Comment: ed overflow Patient Tobacco Use Status: Never used Tobacco e-Cigarette/Vaping Use: Never Used service: No Current occupational status: employed Review of Systems Const Denies chills, Denies daytime sleepiness, Denies difficulty sleeping, Denies fatigue, Denies fever(s), Denies frequent falls, Denies headache(s), Denies increased appetite, Denies poor appetite, Denies snoring, Denies weakness, Denies weight gain and Denies weight loss Eyes Denies loss of vision ENT Denies vertigo, Denies dizziness, Denies headache(s) and Denies neck pain Card Denies chest pain at rest, Denies chest pain with activity, Denies syncope, Denies leg edema, Denies palpitations, Denies dyspnea and Denies dyspnea on exertion Resp Denies cough, Denies dyspnea, Denies dyspnea on exertion and Denies snoring GI Denies abdominal pain, Denies constipation, Denies heartburn, Denies diarrhea and Denies nausea Denies urinary frequency, Denies urinary incontinence and Denies urinary urgency Musc Denies abnormal gait, Denies back pain, Denies myalgias, Reports arthralgias, Denies neck pain, Denies numbness and Denies tingling Neuro Denies abnormal gait, Denies vertigo, Denies dizziness, Denies syncope, Denies frequent falls, Denies headache(s), Denies lack of coordination, Denies loss of vision, Denies memory loss, Denies numbness, Denies Other visual disturbances, Denies restless legs, Denies seizure-like activity, Denies tingling, Denies paresthesias, Reports tremor(s) and Denies weakness Psych Denies anxiety, Denies depression, Denies auditory hallucinations, Denies memory loss and Denies visual hallucinations Endo Denies fatigue and Denies palpitations Physical Exam Const Other: General Appearance:? normal, in no acute distress. Heart:? S1, S2 normal, no murmurs. Lungs:? clear anteriorly and posteriorly. Musculoskeletal:? normal. Extremities:? no edema. Psych:? alert, oriented, cognitive function intact, cooperative with exam. Neuro Other: Abnormal Neurological Findings:?none.? Mental Status: alert and oriented X 3. Normal attention, orientation, memory, and affect. Cranial Nerves: Pupils are equal, round, and reactive to light. External ocular muscles are intact. Visual juarez are full, no ptosis. Face is symmetrical, no facial weakness or droop. Facial sensations are normal. Tongue protrudes in midline. Palate elevates symmetrically. Shoulder shrugging is normal Motor Examination: Normal muscle tone, bulk and strength. No atrophy or fasciculations. No drift of the extended upper extremities. DTR 2+. Plantars are flexor. Sensory Exam: Normal light touch, temperature, pinprick, vibration, and joint- position sensations. Rhomberg sign is absent. Coordination: No ataxia. No titubation. Gait Exam: Within normal limits. Cerebellar Signs: [id number] is okay. Extrapyramidal System: No tremor, rigidity with normal facial expressions. No bradykinesia. No bradyphrenia. Normal arm swing and posture. No propulsion or retropulsion. Speech: Normal. Results Reviewed Results Reviewed: Labs 06/2024: ok (ESR, TSH, negative Lyme) 5/7/24 NCV/EMG UE Borderline Carpal tunnel syndrome on the right. Left mild motor axonal loss in ulnar nerve. Normal EMG in the left C7-T1 innervated muscles. Assessment & Plan Assessment & Plan (1) Benign essential tremor: Code(s): G25.0 - Essential tremor Category: Medical Plan: Continue primidone 50mg 2 tablet twice a day. (2) Left carpal tunnel syndrome: Code(s): G56.02 - Carpal tunnel syndrome, left upper limb Category: Medical Plan: Continue tramadol 50mg 1 tablet as needed for pain #30 for 30 days. Medications: New tramadol 50 mg PO DAILY 30 tabs 0RF 30 days Changed From primidone 100 mg PO BID To primidone 100 mg (2 x 50 mg) PO BID 360 tabs 1RF 90 days Coding Level of Care Code Est Pt Level 4 (64116) Diagnoses Benign essential tremor G25.0 Left carpal tunnel syndrome G56.02
== END 2025-07-28 14:35 | disposition home or self-care (01) ==
LOC: HO.HSM 14:16
PROVIDERS: PCP Internal Medicine; Referring Provider Internal Medicine; Visit Provider Registered Nurse
DX: G25.0 Essential tremor (principal); G56.02 Carpal tunnel syndrome, left upper limb
CPT/HCPCS: 99214

== ENCOUNTER → 2025-07-28 14:16 | Outpatient (BNVA) | payer OTHER, SELFPAY | PROVIDERS: PCP Internal Medicine; Referring Provider Internal Medicine; Visit Provider Registered Nurse | DX: G25.0 Essential tremor (principal); G56.02 Carpal tunnel syndrome, left upper limb | CPT/HCPCS: 99212 ==